=== PATIENT | female | born 1950 | race Caucasian/White ===

== ENCOUNTER 2017-09-23 15:00 | Outpatient (RCR) | payer MEDICARE, OTHER, SELFPAY ==
--- NOTE | 2017-08-25 12:31 | HP.PTEVAL_ITS ---
Patient's Visit Information SINA STAPLETON is a 67 year old F referred to Physical Therapy by Leonor Da Silva DO with a diagnosis of LBP, R hip pain, R hip bursitis. Date of Evaluation: 08/20/17 Physical Therapist: Corey Gilbert - Visit Plan Frequency: 2x /Week Duration: 4 Weeks Plan: Start with manual distraction of hip (straight leg, inferior glides with flexion, PA glides with ext and lateral gapping with hip IR). Add in light hip stretching, progressing to strengthening of hip and core as tolerated. May use DN, US and or IFC to reduce symptoms. - Subjective Subjective: Pt. is here today for her initital evaluation with diagnosis of LBP , R hip pain and R hip bursitis. She is a plesant 67 y.o. female who reports having increased anterior hip pinching: at her anterior hip on her R side with increased hip flexion and IR. Increases symptoms: yoga poses, sitting in low chairs, hip ext motions. Decreases symptoms: avoiding thoses positionings. Xray - suggesting anterior impingment of her hip. Pt. denies radiating pain down her LEs and no N/T. No changes in B/B. Pt. reports most pain is at anterior/medial hip. Pt. reports no LLE pain. Pt. is very active with yoga, but reports minimal strengthening exercises or routine. Pt. is hopeful to increase R hip ROM, decrease symptoms and increase tolerance to all yoga and gym exercises. - Pain R anterior hip Pain Intensity (Out of 10): 0 Pain Intensity Range: 0, 6 Comment: It pinches when I am trying to bend it more. - Objective POSTURE: Pt. has slight FH positioing, slight reduction in lumbar lordosis, slight rounded shoulders. PALPATION: Pt. has mild increase in palpation of psoas major, rectus femoris. Pt. has mild pain at lateral hip, no pain noted througout lumbar erector spinea. No pain at R piriformis muscle belly. NEUROLOGICAL: Pt. has normal sensation to light and sharp touch throughout bilateral LEs. Pt. 2+ patellar and achilles DTR bilaterally. Pt. is able to rise on heels and toes without LOB or visible weakness. ROM: LUMBAR- flexion min loss with mild increase in R anterior hip, ext min/nil loss increase in R anterior hip, SB nil loss NE bilat, rotation nil/min loss NE bilat. R hip- flexion 108deg mild increase in symptoms atnerior/medial hip, abd 45deg NE, IR at 90deg inrease NW 18deg of motion. ER 78deg NE. L hip- with in normal limits NE throughout. MMT: RLE- ankle/knee 5/5 throughout; hip- flexion 4/5 mild increase NW, abd 4/5 NE, ext 4+/5. LLE- ankle/knee 5/5 throughout; hip- flexion 4+/5, abd 4+/5, ext 4+/5. Core strength- poor+. GAIT: Pt. has normal gait pattern, except slight reduced R hip ext with increased pain noted. STAIRS : Pt. reports increased pinching with hip flexion to get to next step. - Special Tests L/S Slump test left side: Negative L/S Slump test right side: Negative L/S Left Straight Leg Raise: Negative L/S Right Straight Leg Raise: Negative R Hip Scour: Negative R Hip TONI - Intraarticular Pathology: Positive R Hip FADDIR - Labrum: Positive R Hip Impingement Provocation - Labrum: Positive - Goals Goal 1:: Pt. to be I with HEP. Goal Time Frame: 4-6 Weeks Goal 2:: Pt. to have increased R hip AROM to 120deg of flexion and 30deg of IR without increase in symptoms. Goal Time Frame: 4-6 Weeks Goal 3:: Pt. to ambulate with normal step length without increase in symptoms. Goal Time Frame: 4-6 Weeks Goal 4:: Pt. to have increased R hip musculature by 1/2 grade of all effected musculature reducing stress applied to R hip with all functional mobility. Goal Time Frame: 4-6 Weeks Goal 5:: Pt. to resume all yoga activities without increase in symptoms. Goal Time Frame: 4-6 Weeks - Rehabilitation Potential Physical Therapy Diagnosis: Pt. has signs and symptoms consistent with R anterior/medial hip pain. She has limited hip IR and hip flexion, but had negative scour testing. Her greatest pain is with FADDIR and TONI positioning. She most likely has an anterior hip impingment effecting her ROM and limiting her functional mobility. She would benefit from PT to increase ROM, increase R hip strength and reduce her pain. Rehabilitation Potential: Good - Anticipated Interventions Patient/Client Instruction: Educate patient on: Condition, Plan of Care, Risk Factors, Benefits of Fitness Program For the Purpose of:: To improve health and function, To foster healthy habits, To improve decision making, To facilitate caregiver knowledge, To improve self management, To prevent re-injury, To improve ability to perform tasks related to life management, To improve tolerance to ADL's Therapeutic Exercise to Include: Strength training, Power training, Endurance training, Postural training, Flexibilty training, Passive ROM, Active ROM, Dynamic Lumbar Stabilization For the Purpose of:: To decrease pain, To increase ROM, To improve nutrient delivery to tissue, To increase oxygenation perfusion, To improve muscle performance and motor function, To increase tolerance to activity/condition/ position, To improve ability of physical actions for home/community/work/leisure , To improve gait and locomotor functions, To improve health of tissue, To decrease soft tissue restriction, To increase flexibility/ROM Manual Therapy Techniques to Include: Mobilization, Passive ROM, Functional dry needling, Soft tissue mobilization For the Purpose of:: To decrease pain, To decrease swelling/inflammation, To increase ROM, To improve nutrient delivery to tissue IF ES: Yes Ultrasound (thermal/non thermal): Yes For the Purpose of:: To decrease pain, To increase ROM Thank you for the opportunity to evaluate your patient. For Medicare and Medicare HMO plans, please review the plan of care and approve it. It will need to be FAXED BACK to us at [phone] for Medicare purposes. Please let me know if there are questions or concerns regarding this plan of care. Physician Signature: Date:
--- NOTE | 2017-09-23 18:28 | HP.PTREVAL_ITS ---
Leonor Da Silva, , It has been my pleasure to treat SINA STAPLETON over the last 7 visits for LBP, R hip pain, R hip bursitis. Please see the progress note below for an update on the physical therapy plan of care! Subjective: Pt. reports I was pretty sore after taking a 35 minute walk the other day. Pt. reports having some gains with PT and massage. Pt. reports continued pain with increased hip flexon and while hip is in extended positioning during walking. Pt. also has pain with yoga activities. Pt. reports being 30% better overall. Objective/Function: Pt. has improved R hip ROM into ext- 10deg of ext, but has pinching feeling with hip flexon and with TONI and FADDIR motions. Pt. has increased pain with yoga and prolonged walking. Pt. is progressing but slowly. Pt. continues to present with imingment of her R hip, bt may have possible labral tear. Pt. to follow up with physician at this point in time. Plan Plan: Pt. to follow up with physician at this point in time. Pt. to come back to PT if warranted by physician. Goals Goal 1:: Pt. to be I with HEP. Goal Time Frame: 4-6 Weeks Goal Progress: Goal Met Goal 2:: Pt. to have increased R hip AROM to 120deg of flexion and 30deg of IR without increase in symptoms. Goal Time Frame: 4-6 Weeks Goal Progress: Progressing Goal 3:: Pt. to ambulate with normal step length without increase in symptoms. Goal Time Frame: 4-6 Weeks Goal Progress: Progressing Goal 4:: Pt. to have increased R hip musculature by 1/2 grade of all effected musculature reducing stress applied to R hip with all functional mobility. Goal Time Frame: 4-6 Weeks Goal Progress: Progressing Goal 5:: Pt. to resume all yoga activities without increase in symptoms. Goal Time Frame: 4-6 Weeks Goal Progress: Progressing Anticipated Interventions Patient/Client Instruction: Educate patient on: Condition, Plan of Care, Risk Factors, Benefits of Fitness Program For the Purpose of:: To improve health and function, To foster healthy habits, To improve decision making, To facilitate caregiver knowledge, To improve self management, To prevent re-injury, To improve ability to perform tasks related to life management, To improve tolerance to ADL's Therapeutic Exercise to Include: Strength training, Power training, Endurance training, Postural training, Flexibilty training, Passive ROM, Active ROM, Dynamic Lumbar Stabilization For the Purpose of:: To decrease pain, To increase ROM, To improve nutrient delivery to tissue, To increase oxygenation perfusion, To improve muscle performance and motor function, To increase tolerance to activity/condition/ position, To improve ability of physical actions for home/community/work/leisure , To improve gait and locomotor functions, To improve health of tissue, To decrease soft tissue restriction, To increase flexibility/ROM Manual Therapy Techniques to Include: Mobilization, Passive ROM, Functional dry needling, Soft tissue mobilization For the Purpose of:: To decrease pain, To decrease swelling/inflammation, To increase ROM, To improve nutrient delivery to tissue IF ES: Yes Ultrasound (thermal/non thermal): Yes For the Purpose of:: To decrease pain, To increase ROM Please do not hesitate to contact me at [phone] by phone or Fax: if you have questions or concerns regarding this new plan of care! Sincerely, Corey Gilbert
--- NOTE | 2018-02-08 12:23 | HP.PTDCNRP_ITS ---
HP - Discharge Summary (1) - Patient Information SINA STAPLETON was seen in my office for initial evaluation on 08/20/17. The following Plan of Care was established for this patient: Initial Frequency: 2x /Week Initial Duration: 4 Weeks - Anticipated Interventions Patient/Client Instruction: Educate patient on: Condition, Plan of Care, Risk Factors, Benefits of Fitness Program For the Purpose of:: To improve health and function, To foster healthy habits, To improve decision making, To facilitate caregiver knowledge, To improve self management, To prevent re-injury, To improve ability to perform tasks related to life management, To improve tolerance to ADL's Therapeutic Exercise to Include: Strength training, Power training, Endurance training, Postural training, Flexibilty training, Passive ROM, Active ROM, Dynamic Lumbar Stabilization For the Purpose of:: To decrease pain, To increase ROM, To improve nutrient delivery to tissue, To increase oxygenation perfusion, To improve muscle performance and motor function, To increase tolerance to activity/condition/ position, To improve ability of physical actions for home/community/work/leisure , To improve gait and locomotor functions, To improve health of tissue, To decrease soft tissue restriction, To increase flexibility/ROM Manual Therapy Techniques to Include: Mobilization, Passive ROM, Functional dry needling, Soft tissue mobilization For the Purpose of:: To decrease pain, To decrease swelling/inflammation, To increase ROM, To improve nutrient delivery to tissue IF ES: Yes Ultrasound (thermal/non thermal): Yes For the Purpose of:: To decrease pain, To increase ROM This patient was last seen in our office 09/23/17. Pertinent comments regarding their Physical therapy will appear below: Pt. was seen for her R hip pain. Pt. was to follow up with phsyician then back to PT if needed. Pt. has not been seen in 4 months and will be DC from PT at this point in time. At this point I will be discontinuing this patient from physical therapy. I would be happy to see this patient again in the future if found appropriate by the physician. Thank you! Corey Gilbert
== END 2017-09-23 19:00 | disposition home or self-care (01) ==
LOC: PT 15:00
PROVIDERS: Family Provider Internal Medicine; PCP Internal Medicine; Visit Provider Internal Medicine
DX: M25.559 Pain in unspecified hip (principal); M70.70 Other bursitis of hip, unspecified hip; M54.5 Low back pain
CPT/HCPCS: 97035; 97110; 97140; 97162; G8978; G8979

== ENCOUNTER → 2017-11-25 15:01 | Outpatient (CLI) | payer MEDICARE, OTHER, SELFPAY ==
--- NOTE | 2017-11-25 15:04 | HPBI_ITS ---
MAMMOGRAPHY - BILATERAL SCREENING REASON FOR EXAM: Female, 67 years old. Routine annual screening examination. PERTINENT HISTORY: Sister with breast cancer. Remote right excisional breast biopsy and bilateral stereotactic biopsies. TECHNIQUE: Digital bilateral breast naa (3D mammographic acquisition) in the CC and MLO projections. 2-D mediolateral oblique (MLO) and craniocaudad (CC) views of both breasts were obtained. CAD: Full Field Digital Mammography with Computer Added Detection was performed. COMPARISON: Comparison is made with prior study dated February 04, 2011 and June 18, 2012. FINDINGS: Breast Composition: There are scattered areas of fibroglandular density. There are no dominant masses or suspicious calcifications. Tissue clip markers are seen in the retroareolar areolar regions of both breasts. There is a 6.7 mm x 7.4 mm well-defined nodular density in the inferior slightly medial aspect of the right breast. This is new as compared to prior study. Correlation with ultrasound is recommended. No other significant abnormalities are identified. HPBI/SCREENING MAMM (CAD), BILAT IMPRESSION: 6.7 mm x 7.4 mm well-defined nodular density in the slightly inferior medial portion of the right breast as described. Correlation with ultrasound is recommended. ASSESSMENT CATEGORY: BIRADS Category 0: Incomplete. Need additional imaging evaluation. A letter regarding these results will be sent to the patient by the facility within 30 days. Approximately 10% of breast cancers are not detected by mammography. A normal mammogram should not delay biopsy of a clinically suspicious abnormality. [id number] Electronically Signed: Zander Marcelo MD at 8:14 EST Tel [phone], Service support ,
== END ==
PROVIDERS: Family Provider Internal Medicine; PCP Internal Medicine; Visit Provider Internal Medicine
DX: Z12.31 Encounter for screening mammogram for malignant neoplasm of breast (principal)
CPT/HCPCS: 77063; 77067

== ENCOUNTER → 2017-11-27 09:01 | Outpatient (CLI) | payer MEDICARE, OTHER, SELFPAY ==
--- NOTE | 2017-11-27 09:03 | US_ITS ---
STUDY: ULTRASOUND BREAST - RIGHT REASON FOR EXAM: Female, 67 years old. Abnormal screening mammogram. TECHNIQUE: Axial and longitudinal images of the RIGHT breast were performed with a high resolution ultrasound transducer. COMPARISON: Comparison is made with prior mammogram dated November 25, 2017. FINDINGS: RIGHT Breast: The mammographic abnormality corresponds to a 5 mm x 5 mm x 3 mm cyst at the 6:00 position breast at 2 cm from the nipple. Routine mammographic follow-up is recommended. US/Breast Limited Unilateral IMPRESSION: 5 mm x 5 mm x 3 mm cyst is seen at the 6:00 position breast at 2 cm from the nipple. ASSESSMENT CATEGORY: BIRADS Category 2: Benign. A letter regarding these results will be sent to the patient by the facility within 30 days. Electronically Signed: Zander Marcelo MD at 9:03 EST Tel [phone], Service support ,
== END ==
PROVIDERS: Family Provider Internal Medicine; PCP Internal Medicine; Visit Provider Internal Medicine
DX: N63.10 Unspecified lump in the right breast, unspecified quadrant (principal)
CPT/HCPCS: 76642

== ENCOUNTER → 2018-02-26 10:59 | Outpatient (CLI) | payer MEDICARE, OTHER, SELFPAY ==
--- NOTE | 2018-02-26 11:00 | US_ITS ---
STUDY: THYROID ULTRASOUND REASON FOR EXAM: Female, 67 years old. History of thyroid nodules. TECHNIQUE: Ultrasound evaluation of the thyroid was performed with real-time and static zuniga-scale imaging. COMPARISON: Comparison is made with prior study dated February 10, 2017. FINDINGS: RIGHT LOBE: The right lobe of the thyroid gland is enlarged and measures 5.3 cm x 1.8 cm x 1.0 cm. There is a homogeneous echotexture. Once again, 4 subcentimeter solid nodules are seen in the right lobe. The largest measures 5 mm x 6 mm x 6 mm. These are unchanged. LEFT LOBE: The left lobe of the thyroid gland measures 4.5 cm x 1.2 cm x 0.9 cm. There is a homogeneous echotexture. 3 hypoechoic solid nodules are seen. The largest measures 1 cm x 0.7 cm x 0.6 cm. This is essentially unchanged. ISTHMUS: The isthmus measures 2.0 mm. The regional lymph nodes are normal. US/Thyroid IMPRESSION: Nodule seen in both lobes of the thyroid. There has been essentially no change as compared to prior study. Electronically Signed: Zander Marcelo MD at 15:29 EDT Tel [phone], Service support ,
== END ==
PROVIDERS: Family Provider Internal Medicine; PCP Internal Medicine; Visit Provider Internal Medicine
DX: E04.1 Nontoxic single thyroid nodule (principal)
CPT/HCPCS: 76536

== ENCOUNTER → 2018-03-09 12:42 | Outpatient (CLI) | payer MEDICARE, OTHER, SELFPAY ==
--- NOTE | 2018-03-09 12:48 | RAD_ITS ---
STUDY: X-RAY - THORACIC SPINE REASON FOR EXAM: Female, 67 years old. Pain TECHNIQUE: 3 view(s) of the thoracic spine were obtained. COMPARISON: None. FINDINGS: Normal kyphosis of the thoracic spine. There is no substantial scoliosis. There is multilevel endplate spondylosis of the thoracic vertebrae. There is multilevel disc space narrowing of the thoracic spine. There is slight chronic loss of height at the level T7 and T8. The soft tissue structures are unremarkable. RAD/Thoracic Spine 3 Views IMPRESSION: Degenerative changes thoracic spine. No visualized evidence of an acute fracture. Electronically Signed: Dulce Larson MD at 17:07 EDT Tel , Service support ,
== END ==
PROVIDERS: Family Provider Internal Medicine; PCP Internal Medicine; Visit Provider Anesthesiology Pain Medicine
DX: M54.6 Pain in thoracic spine (principal)
CPT/HCPCS: 72072

== ENCOUNTER 2018-04-16 09:00 | Outpatient (RCR) | payer MEDICARE, OTHER, SELFPAY ==
--- NOTE | 2018-04-06 08:01 | HP.PTEVAL_ITS ---
Patient's Visit Information SINA STAPLETON is a 67 year old F referred to Physical Therapy by Saqib Medina MD with a diagnosis of R hip OA, thoracic spine pain. Date of Evaluation: 03/15/18 Physical Therapist: Corey Gilbert - Visit Plan Frequency: 2-3x /Week Duration: 4-6 Weeks Plan: Start with R hip/core strengthening in netural positioning with progression to functional strengthening. Education on postural strengthening and positioning. - Subjective Subjective: Pt. is here today for her initial evaluation with diagnosis of R hip OA and thoracic pain. Pt. has had increased pain in R lateral hip and down R thigh. Pt. reports minimal groin pain. No mechanism of injury. Pt. denies N/ T. Symptoms worsen: walking, getting in/out of car, yoga movements. Pt. has R hip injection 3 weeks ago with good + results. PT. is able to completed yoga with modified movements with good tolerance. Symptoms improve- ice, ibuprophen. Pt. is able sleep throughout the night without issues. Xray- shows moderate hip OA. Pt. does also have middle thoracic pain, that seems to increase in the middle of the day and increases throughout the rest of the evening. Pt. reports staying active reduces thoracic pain. Pt. does get get massage monthly with + results. Pt. is hopfeul to increase strength and reduce symptoms in order to get abck to all recreational activities without issues. - Pain lumbar spine Pain Intensity (Out of 10): 2 hip Pain Intensity (Out of 10): 1 Pain Intensity Range: 0, 3 - Objective POSTURE: pt. has slight increased thoracic kyphosis. Pt. has normal hip positioning in stance. Normal/equal iliac crest heights. PALPATION: Pt. has increased soreness at iliopsoas, no lumbar spine pain with papation this date. T5/T6 hypomobility noted. Pain at middle trap. NEUROLOGICAL: all intact, 2+ DTR patellar, achilles bilaterally. Pt. is able to rise on heels and toes without issues or LOB. ROM: R hip- flexion 108deg increase NW, IR 8deg increase NW, ext 10deg increase NW. Normal HS length bilat. MMT: RLE- ankle 5/ 5 throughout; knee- 5/5 througout; hip- flexion 4/5, abd 4/5, ext 4/5. Core- fair-. GAIT: decreased bilateral step length, slight lateral hip sway bilaterally. STAIRS: 1 HR with reciprocal pattern no pain noted. - Goals Goal 1:: Pt. to be I with HEP. Goal Time Frame: 4-6 Weeks Goal 2:: Pt. to have increased RLE strength increased by 1/2 grade throughout effected musculature. Goal Time Frame: 4-6 Weeks Goal 3:: Pt. to ambulate unlimited distances with 0/10 pain in R hip and thoracic spine. Goal Time Frame: 4-6 Weeks Goal 4:: Pt. to have decreased thoracic spine pain to 1-2/10 with all daily activities. Goal Time Frame: 4-6 Weeks Goal 5:: Pt. to negotiate 1 flight of steps with reciprocal pattern with 0/10 pain. - Rehabilitation Potential Physical Therapy Diagnosis: Pt. has signs and symptoms consistent with R hip OA and thoracic spine pain. Pt. has decreased mobility throughout R hip and thoracic spine. Pt. would benefit from PT to increase R LE strength, core strength, improve posture and increase postural strength in order to get back to all recreational actiities with decreased symptoms. Rehabilitation Potential: Excellent - Anticipated Interventions Patient/Client Instruction: Educate patient on: Condition, Plan of Care, Risk Factors, Benefits of Fitness Program For the Purpose of:: To improve health and function, To foster healthy habits, To improve decision making, To facilitate caregiver knowledge, To improve self management, To prevent re-injury, To improve ability to perform tasks related to life management, To improve tolerance to ADL's Therapeutic Exercise to Include: Strength training, Power training, Endurance training, Balance training For the Purpose of:: To decrease pain, To increase ROM, To improve nutrient delivery to tissue, To increase oxygenation perfusion, To improve muscle performance and motor function, To improve ability to perform ADL's, To improve gait and locomotor functions, To improve health of tissue, To decrease soft tissue restriction, To increase flexibility/ROM, To improve endurance Manual Therapy Techniques to Include: Petrissage, Trigger point massage, Mobilization, Passive ROM, Functional dry needling For the Purpose of:: To decrease pain, To increase ROM, To improve nutrient delivery to tissue, To improve muscle performance and motor function, To improve gait and locomotor functions, To improve health of tissue, To increase flexibility/ROM IF ES: Yes Cryotherapy (ice pack, ice massage): Yes Ultrasound (thermal/non thermal): Yes For the Purpose of:: To decrease pain, To decrease swelling/inflammation, To increase ROM Thank you for the opportunity to evaluate your patient. For Medicare and Medicare HMO plans, please review the plan of care and approve it. It will need to be FAXED BACK to us at [phone] for Medicare purposes. Please let me know if there are questions or concerns regarding this plan of care. Physician Signature: Date:
--- NOTE | 2018-07-20 12:02 | HP.PTDCNRP_ITS ---
HP - Discharge Summary (1) - Patient Information SINA STAPLETON was seen in my office for initial evaluation on 03/15/18. The following Plan of Care was established for this patient: Initial Frequency: 2-3x /Week Initial Duration: 4-6 Weeks - Anticipated Interventions Patient/Client Instruction: Educate patient on: Condition, Plan of Care, Risk Factors, Benefits of Fitness Program For the Purpose of:: To improve health and function, To foster healthy habits, To improve decision making, To facilitate caregiver knowledge, To improve self management, To prevent re-injury, To improve ability to perform tasks related to life management, To improve tolerance to ADL's Therapeutic Exercise to Include: Strength training, Power training, Endurance training, Balance training For the Purpose of:: To decrease pain, To increase ROM, To improve nutrient delivery to tissue, To increase oxygenation perfusion, To improve muscle performance and motor function, To improve ability to perform ADL's, To improve gait and locomotor functions, To improve health of tissue, To decrease soft tissue restriction, To increase flexibility/ROM, To improve endurance Manual Therapy Techniques to Include: Petrissage, Trigger point massage, Mobilization, Passive ROM, Functional dry needling For the Purpose of:: To decrease pain, To increase ROM, To improve nutrient delivery to tissue, To improve muscle performance and motor function, To improve gait and locomotor functions, To improve health of tissue, To increase flexibi lity/ROM IF ES: Yes Cryotherapy (ice pack, ice massage): Yes Ultrasound (thermal/non thermal): Yes For the Purpose of:: To decrease pain, To decrease swelling/inflammation, To increase ROM This patient was last seen in our office 04/16/18. Pertinent comments regarding their Physical therapy will appear below: Pt. was seen for her R hip pain. Pt. was seen for 4 visits and was not imporving. She followed up with an ortho and decided to have a R TKA. Pt. will be DC from PT at this point in time. At this point I will be discontinuing this patient from physical therapy. I would be happy to see this patient again in the future if found appropriate by the physician. Thank you! Corey Gilbert
== END 2018-04-16 19:00 | disposition home or self-care (01) ==
LOC: PT 09:00
PROVIDERS: Family Provider Internal Medicine; PCP Internal Medicine; Visit Provider Anesthesiology Pain Medicine
DX: M70.70 Other bursitis of hip, unspecified hip (principal); M54.5 Low back pain
CPT/HCPCS: 97110; 97140; 97162; 97163; G8978; G8979

== ENCOUNTER → 2018-05-03 14:08 | Outpatient (CLI) | payer MEDICARE, OTHER, SELFPAY ==
--- NOTE | 2018-05-03 14:12 | RAD_ITS ---
STUDY: X-RAY CHEST REASON FOR EXAM: Female, 67 years old. Preoperative hip surgery TECHNIQUE: PA and lateral views of the chest. COMPARISON: 07/17/2014 FINDINGS: The lungs are clear and expanded. There is no demonstrated pleural abnormality. Normal size heart. Normal mediastinum and rose mary. Normal visualized pulmonary arteries. Normal visualized aortic arch and descending thoracic aorta. Normal visualized thoracic spine. Normal visualized ribs, clavicles, and shoulders. There is no demonstrated abnormality of the visualized soft tissue structures of the upper abdomen. RAD/Chest PA and Lateral IMPRESSION: Normal x-ray examination of the chest. Electronically Signed: Felton Singh DO at 15:04 EDT Tel , Service support ,
== END ==
PROVIDERS: Family Provider Internal Medicine; PCP Internal Medicine; Visit Provider Internal Medicine
DX: Z01.818 Encounter for other preprocedural examination (principal)
CPT/HCPCS: 71046

== ENCOUNTER → 2018-06-24 15:27 | Outpatient (CLI) | payer MEDICARE, OTHER, SELFPAY ==
--- NOTE | 2018-06-24 15:30 | US_ITS ---
STUDY: ULTRASOUND BREAST - RIGHT REASON FOR EXAM: Female, 67 years old. Follow-up examination for a right breast cyst. TECHNIQUE: Axial and longitudinal images of the RIGHT breast were performed with a high resolution ultrasound transducer. COMPARISON: Comparison is made with prior ultrasound of the right breast dated November 27, 2017. FINDINGS: RIGHT Breast: There is a 4 mm x 7 mm x 4 mm cyst at the 6:00 position of the breast at 2 cm from nipple. This is essentially unchanged. US/Breast Limited Unilateral IMPRESSION: Stable cyst at the 6:00 position of the breast to sinus from the nipple. ASSESSMENT CATEGORY: BIRADS Category 2: Benign. A letter regarding these results will be sent to the patient by the facility within 30 days. Electronically Signed: Zander Marcelo MD at 8:39 EDT Tel [phone], Service support ,
== END ==
PROVIDERS: Family Provider Internal Medicine; PCP Internal Medicine; Visit Provider Internal Medicine
DX: N60.01 Solitary cyst of right breast (principal)
CPT/HCPCS: 76642

== ENCOUNTER → 2018-07-01 10:32 | Outpatient (CLI) | payer MEDICARE, OTHER, SELFPAY ==
--- NOTE | 2018-07-01 10:35 | BD_ITS ---
STUDY: DUAL ENERGY X-RAY ABSORPTIOMETRY / DXA REASON FOR EXAM: Female, 67 years old. The patient is postmenopausal. Loss of height. TECHNIQUE: Bone Mineral Density (BMD) measurements of lumbar spine and left hip were obtained. The patient is status post right total hip replacement. COMPARISON: Comparison is made with prior examination dated May 13, 2016. FINDINGS: Lumbar Spine (L1-L4): g/cm2 (0.912) / T-score (-2.2) / Z-score (-0.6) Findings are suggestive of osteopenia with a moderate fracture risk. Left Femur Total: g/cm2 (0.746) / T-score (-2.1) / Z-score (-0.8) Left Femoral Neck: g/cm2 (0.728) / T-score (-2.2) / Z-score (-0.7) The T-Scores on the most recent prior examination were: Lumbar Spine (L1-L4): There has been worsening of bone density since the previous examination. Left Femur Total: which represents a worsening of 3.2%. BD/Dexa Bone Density Study IMPRESSION: The patient is considered osteopenic as outlined below according to World Gagan Organization (WHO) criteria with a moderate fracture risk. There has been worsening of bone density since the previous examination. Reference Information: The T-score is the number of standard deviations above or below the standard which is normal for young adults at their peak bone mineral density. The World Health Organization (WHO) interprets the T-scores as follows: Above -1 Normal bone density Between -1 and -2.5 Osteopenia Equal to / or below -2.5 Osteoporosis As a practical clinical guideline, osteopenia may be graded as follows: Mild -1 through -1.5 Moderate -1.6 through -2.0 Severe -2.1 through -2.4 The Z-score is the number of standard deviations above or below age-matched controls. A Z-score of less than -1.5 would be considered abnormal. References: 1. NIH Osteoporosis and Related Bone Diseases http://www.osteo.org 2. International Society for Clinical Densitometry http://www.iscd.org 3. National Osteoporosis Foundation http://www.nof.org Electronically Signed: Zander Marcelo MD at 8:58 EDT Tel [phone], Service support ,
== END ==
PROVIDERS: Family Provider Internal Medicine; PCP Internal Medicine; Visit Provider Internal Medicine
DX: Z78.0 Asymptomatic menopausal state (principal)
CPT/HCPCS: 77080

== ENCOUNTER → 2018-11-15 14:30 | Outpatient (CLI) | payer SELFPAY ==
--- NOTE | 2018-11-15 14:40 | CT_ITS ---
STUDY: CT CHEST WITHOUT CONTRAST REASON FOR EXAM: Female, 68 years old. Elevated cholesterol. Hypertension. Calcium scoring examination. Radiological overreading. RADIATION DOSAGE (If Supplied By Facility): CTDIvol = ( 12.19 ) mGy, DLP = ( 195.04 ) mGycm TECHNIQUE: Transaxial imaging was performed without the administration of intravenous contrast material. Individualized dose optimization techniques were used for this CT. COMPARISON: None. FINDINGS: Mild degree of increased linear markings at the lung bases suggestive of bibasilar linear atelectasis and/or scarring. There is no demonstrated pleural abnormality. There are calcifications of the coronary arteries. There are multiple small lymph nodes within the mediastinum, which are normal in size and morphology most compatible with reactive lymph hyperplasia. Normal hilar regions. Normal unenhanced pulmonary arteries. There is atherosclerotic calcification of the aortic arch . Normal osseous structures. There is no demonstrated abnormality of the visualized upper abdomen. CT/Limited Chest CT w/CCTA IMPRESSION: Coronary artery calcification. No acute abnormality is seen. Electronically Signed: Zander Marcelo MD at 15:21 EST , Service support ,
--- NOTE | 2018-11-16 15:32 | CA.SCORE ---
Calcium Scoring Date of Study:: 11/15/18 Coronary Calcium Scoring: Calcium score: Left main: 0 Left anterior descendin Left circumflex: 0 Right coronary artery: 215 Total Agatston score: 215 Conclusion: Conclusion: The total calcium score (215) is between the 75th and 90th percentile for women between the ages of 65 and 69. (Exact percentile calculated to be 79%; this means 70% of the population has lower calcium score and 21% of the population has a higher calcium score than this patient.) Results: RCA: Patient appears to have calcium in the proximal mid and distal RCA. Impression: Impression: A calcium score of 215 demonstrates probable moderate plaque burden. This suggests that moderate nonobstructive coronary artery disease is highly likely. A full evaluation of cardiac risk factors should include an assessment of all conventional risk factors, and the scores and percentile ranking reported herein should be evaluated in this context. Recommend clinical correlation or alternative mode of testing such as stress echocardiogram to better evaluate patient's possible ischemic burden.
== END ==
PROVIDERS: Family Provider Internal Medicine; PCP Internal Medicine; Referring Provider Internal Medicine; Visit Provider Internal Medicine
DX: E78.5 Hyperlipidemia, unspecified (principal)
CPT/HCPCS: 75571; 76380

== ENCOUNTER → 2019-04-27 | Outpatient (CLI) | payer MEDICARE, OTHER, SELFPAY ==
--- NOTE | 2019-04-27 14:21 | BI_ITS ---
MAMMOGRAPHY - BILATERAL SCREENING REASON FOR EXAM: Female, 68 years old. Routine annual screening examination. PERTINENT HISTORY: Sister with breast cancer. Aunt with breast cancer. Remote right excisional breast biopsy and bilateral stereotactic breast biopsies. TECHNIQUE: Digital bilateral breast denita (3D mammographic acquisition) in the CC and MLO projections. 2-D mediolateral oblique (MLO) and craniocaudad (CC) views of both breasts were obtained. CAD: Full Field Digital Mammography with Computer Added Detection was performed. COMPARISON: Comparison is made with prior study dated November 25, 2017 and June 18, 2012. FINDINGS: Breast Composition: There are scattered areas of fibroglandular density. There are no dominant masses or suspicious calcifications. Stable 7.4 mm x 6.7 mm well-defined nodule in the inferior slightly medial portion of the right breast. A tissue clip marker is seen in the retroareolar region of the breasts bilaterally. No other significant abnormalities are identified. There has been no significant change since the prior study. BI/SCREEN MAMM (CAD) W/DENITA BILAT IMPRESSION: Stable bilateral screening mammogram. Yearly follow-up mammogram recommended. (A) ASSESSMENT CATEGORY: BIRADS Category 2: Benign. A letter regarding these results will be sent to the patient by the facility within 30 days. Approximately 10% of breast cancers are not detected by mammography. A normal mammogram should not delay biopsy of a clinically suspicious abnormality. [id number] Electronically Signed: Zander Marcelo, at 15:23 EDT , Service support ,
== END | disposition home or self-care (01) ==
LOC: OPBI 14:20
PROVIDERS: Family Provider Internal Medicine; PCP Internal Medicine; Referring Provider Internal Medicine; Visit Provider Internal Medicine
DX: Z12.31 Encounter for screening mammogram for malignant neoplasm of breast (principal)
CPT/HCPCS: 77063; 77067

== ENCOUNTER → 2019-07-26 | Outpatient (CLI) | payer MEDICARE, OTHER, SELFPAY ==
--- NOTE | 2019-07-26 15:25 | CT_ITS ---
STUDY: CT BRAIN WITH AND WITHOUT CONTRAST REASON FOR EXAM: Female, 68 years old. Frequent headaches. History of hypertension. RADIATION DOSAGE (If Supplied By Facility): CTDIvol = ( 44.99 ) mGy, DLP = ( 1479.73 ) mGycm TECHNIQUE: Transaxial CT imaging of the brain was performed pre and post contrast administration. The examination was performed with intravenous administration of IV Isovue 370 50mL. Individualized dose optimization techniques were used for this CT. COMPARISON: None. FINDINGS: Normal soft tissue structures. Normal calvarium. Normal size ventricles and extra-axial spaces for the patient's age. There is minimal cortical loss with encephalomalacia in the medial left frontal lobe adjacent to the falx cerebri suggesting remote infarct. Normal white matter tracts of the cerebral hemispheres. Remote lacunar infarct in the left basal ganglia. Normal right basal ganglia and bilateral thalami. Normal brainstem. Normal cerebellum. There is no intracranial hemorrhage. There are no findings of an acute ischemic infarction. There is normal enhancement within the brain. The opacified vessels appear normal in size and distribution and without abnormality. Normal visualized paranasal sinuses. CT/Brain/Head W/WO Contrast IMPRESSION: 1. Left frontal encephalomalacia suggesting remote infarct. 2. Remote lacunar infarct in left basal ganglia. 3. No other evidence of intracranial or calvarial abnormality. Electronically Signed: Eliezer Noel DO at 20:55 EDT Tel [phone], Service support ,
[2019-07-26 15:56] LABS: CREATININE FINGERSTICK < 0.6 mg/dL (0.55-1.02); EGFR FINGERSTICK > 60.0000 mL/min (>60)
== END | disposition home or self-care (01) ==
LOC: CT 15:23
PROVIDERS: Family Provider Internal Medicine; PCP Internal Medicine; Referring Provider Internal Medicine; Visit Provider Internal Medicine
DX: R51 Headache (principal)
CPT/HCPCS: 70470; Q9967

== ENCOUNTER → 2019-08-03 | Outpatient (CLI) | payer MEDICARE, OTHER, SELFPAY ==
--- NOTE | 2019-08-03 12:44 | MRI_ITS ---
STUDY: MRI BRAIN WITH AND WITHOUT CONTRAST REASON FOR EXAM: Female, 68 years old. confusion. TECHNIQUE: Standardized multiplanar fat and water weighted pulse sequences were obtained. IV Dotarem 12 was administered for the contrast portion of the examination. COMPARISON: CT dated July 26, 2018 FINDINGS: Normal size of the ventricles and extra-axial spaces for the patient's age. Normal white matter tracts of the supratentorial brain. There is left anterior frontal and temporal encephalomalacia and gliosis, consistent with prior insult. Normal bilateral basal ganglia. Normal thalami. There is no extra-axial fluid accumulation. Normal flow voids within the major intracranial circulation suggesting patency by spin echo criteria. Normal venous enhancement. There is no enhancing intra-axial or extra-axial abnormality. Normal sella turcica, pituitary gland, infundibular stalk, optic chiasm and hypothalamus. Normal tectal plate and pineal gland. Normal midbrain, den and medulla. Normal cerebellum. Normal basal cisterns. MRI/Brain W/WO Contrast IMPRESSION: No acute intracranial abnormality or masses. Prior left anterior frontal and temporal insult. Electronically Signed: Joi Menjivar MD at 12:03 EDT Tel , Service support ,
== END | disposition home or self-care (01) ==
LOC: MRI 12:32
PROVIDERS: Family Provider Internal Medicine; PCP Internal Medicine; Referring Provider Internal Medicine; Visit Provider Internal Medicine
DX: R41.0 Disorientation, unspecified (principal)
CPT/HCPCS: 70553

== ENCOUNTER → 2019-09-01 12:57 | Outpatient (CLI) | payer MEDICARE, OTHER, SELFPAY ==
--- NOTE | 2019-09-01 12:59 | ECHOCS_ITS ---
Reason For Study: TIA Procedure This was a 2D Doppler, Color Flow transthoracic echocardiogram. Contrast injection was performed. Exam performed in department. Left Ventricle Normal LV size. The estimated ejection fraction is 60 %. Normal diastology for age. No regional wall motion abnormalities noted. Right Ventricle Normal RV size. Normal systolic function. Atria Normal left atrium. Normal right atrium. No doppler evidence for ASD. Bubble contrast study negative for right to left interatrial shunt. Mitral Valve There is no mitral valve stenosis. Trivial mitral valve insufficiency. Tricuspid Valve There is no tricuspid stenosis. Trivial tricuspid valve insufficiency. Pulmonary artery systolic pressure is 25-30 mmHg. Aortic Valve Trisinus/trileaflet aortic valve. There is no aortic stenosis. No aortic valve insufficiency. Pulmonic Valve There is no pulmonic valvular stenosis. No pulmonic valve insufficiency. Great Vessels Normal aortic root. Pericardium/Pleural No pericardial effusion. Medication 22 gauge I.V. with prn adaptor inserted into left arm. Diluted definity 2ml given slow IV push to enhance endocardial definition. Performed a rapid injection of agitated mix of 9 cc saline and 1cc air to assess for atrial septal defect. MMode/2D Measurements & Calculations LVIDd: 3.5 cm IVSd: 1.2 cm Ao root diam: 3.2 cm LVIDs: 2.1 cm LVPWd: 0.91 cm LA dimension: 3.1 cm RVDd: 3.1 cm FS: 39.3 % LAV(MOD-bp): 34.4 ml LA A4 area: 15.1 cm2 RA A4 area: 10.1 cm2 LAV(MOD-sp2): 28.9 ml LAV(MOD-sp4): 36.8 ml Time Measurements MV dec time: 0.20 sec Doppler Measurements & Calculations MV E max chris: 77.1 cm/sec Lat Peak E' Chris: 9.9 cm/sec Med Peak E' Chris: 7.8 cm/sec MV A max chris: 90.1 cm/sec E/E' lat: 7.8 E/E' med: 9.9 MV E/A: 0.86 MV V2 max: 102.1 cm/sec MV P1/2t max chris: 91.8 cm/sec Ao V2 max: 116.5 cm/sec MV max P.2 mmHg MV P1/2t: 55.3 msec Ao max P.4 mmHg MV V2 mean: 52.1 cm/sec MV mean P.3 mmHg MV dec slope: 486.2 cm/sec2 MV V2 VTI: 24.6 cm MVA(P1/2t): 4.0 cm2 LV V1 max: 92.3 cm/sec PA V2 max: 56.9 cm/sec TR max chris: 239.3 cm/sec LV V1 max P.4 mmHg TR max P.9 mmHg Interpretation Summary The estimated ejection fraction is 60 %. Normal diastology for age. Trivial mitral valve insufficiency. Trivial tricuspid valve insufficiency. Pulmonary artery systolic pressure is 25-30 mmHg. Diluted definity 2ml given slow IV push to enhance endocardial definition. Performed a rapid injection of agitated mix of 9 cc saline and 1cc air to assess for atrial septal defect. Bubble contrast study negative for right to left interatrial shunt. The study was technically difficult. Ordering Physician: Leonor Da Silva Referring Physician: Leonor Da Silva Performed By: Mack Marquez RCS
== END ==
PROVIDERS: Family Provider Internal Medicine; PCP Internal Medicine; Referring Provider Internal Medicine; Visit Provider Internal Medicine
DX: Z86.73 Personal history of transient ischemic attack (TIA), and cerebral infarction without residual deficits (principal)
CPT/HCPCS: 93306; Q9957; A4216; C8929

== ENCOUNTER → 2019-11-23 | Outpatient (CLI) | payer MEDICARE, OTHER, SELFPAY ==
--- NOTE | 2019-11-23 15:00 | US_ITS ---
STUDY: THYROID ULTRASOUND REASON FOR EXAM: Female, 69 years old. NODULES TECHNIQUE: Ultrasound evaluation of the thyroid was performed with real-time and static zuniga-scale imaging. COMPARISON: February 26, 2018. FINDINGS: RIGHT LOBE: The right lobe of the thyroid gland measures 4.7 x 4.3 x 1.2 cm. There is a heterogeneous echotexture. There is a mid thyroid possibly solid hypoechoic 4 mm mid thyroid nodule. A previously described adjacent 5 mm nodule is faintly noted. LEFT LOBE: The left lobe of the thyroid gland measures 3.9 x 1.1 x 1.1 cm. There is a heterogeneous echotexture. There is a lower pole hypoechoic 7 x 6 mm solid nodule, possibly minimally smaller. Hypoechoic 3 mm mid thyroid is probable cystic nodule appears stable. ISTHMUS: The isthmus measures 2 mm . The regional lymph nodes are normal. US/Thyroid IMPRESSION: Slight heterogeneity of the thyroid. Bilateral thyroid nodules as noted. Electronically Signed: Nomi Sage DO at 23:52 EST Tel [phone], Service support ,
== END | disposition home or self-care (01) ==
LOC: US 14:58
PROVIDERS: PCP Internal Medicine; Referring Provider Internal Medicine; Visit Provider Internal Medicine
DX: E04.1 Nontoxic single thyroid nodule (principal)
CPT/HCPCS: 76536

== ENCOUNTER → 2020-01-19 08:42 | Outpatient (CLI) | payer MEDICARE, OTHER, SELFPAY ==
[2019-12-27 13:22] VITALS: BMI 23.0
--- NOTE | 2020-01-19 08:46 | US_ITS ---
STUDY: ULTRASOUND BREAST - RIGHT REASON FOR EXAM: Female, 69 years old. Palpable lump in the right breast. TECHNIQUE: Axial and longitudinal images of the RIGHT breast were performed with a high resolution ultrasound transducer. # OF IMAGES: 40 COMPARISON: Comparison is made with prior mammogram done earlier in the day. FINDINGS: RIGHT Breast: The superior aspect of the right breast was examined by ultrasound. No sonographic abnormalities. IMPRESSION: No sonographic abnormality is seen. ASSESSMENT CATEGORY: BIRADS Category 1: Negative. A letter regarding these results will be sent to the patient by the facility within 30 days. Electronically Signed: Zander Marcelo, at 11:06 EDT , Service support , STUDY: ULTRASOUND BREAST - LEFT REASON FOR EXAM: Female, 69 years old. Palpable lump left breast. TECHNIQUE: Axial and longitudinal images of the LEFT breast were performed with a high resolution ultrasound transducer. # OF IMAGES: 40 COMPARISON: Comparison is made with prior mammogram done earlier today. FINDINGS: LEFT Breast: There is a 3 mm x 3 mm x 2 mm cyst at the 2:00 position of the breast at 5 cm from the nipple. US/Breast Limited Unilateral IMPRESSION: 3 mm x 3 mm x 2 mm cyst at the 2:00 position of the breast at 5 cm from nipple. ASSESSMENT CATEGORY: BIRADS Category 2: Benign. A letter regarding these results will be sent to the patient by the facility within 30 days. Electronically Signed: Zander Marcelo, at 11:07 EDT , Service support ,
--- NOTE | 2020-01-19 08:46 | BI_ITS ---
MAMMOGRAPHY - BILATERAL DIAGNOSTIC REASON FOR EXAM: Female, 69 years old. Bilateral breast lumps. PERTINENT HISTORY: Sister with breast cancer. Aunt with breast cancer. History of prior right excisional breast biopsy and stereotactic breast biopsy. TECHNIQUE: Digital bilateral breast naa (3D mammographic acquisition) in the CC and MLO projections. 2-D mediolateral oblique (MLO) and craniocaudad (CC) views of both breasts were obtained. CAD: Full Field Digital Mammography with Computer Added Detection was performed. COMPARISON: Comparison is made with prior study dated April 27, 2019 and November 25, 2017. FINDINGS: Breast Composition: There are scattered areas of fibroglandular density. There are no dominant masses or suspicious calcifications. Stable 7.4 mm x 6.5 mm well-defined nodule in the inferior slightly medial portion of the right breast. A tissue clip marker is once again seen in the retroareolar region of the breasts bilaterally. No other significant abnormalities are identified. There has been no significant change since the prior study. BI/DIAG MAMM W/CAD, BILAT IMPRESSION: Stable bilateral diagnostic mammogram. With the patient''s history of bilateral breast lumps, targeted breast ultrasound is recommended. ASSESSMENT CATEGORY: BIRADS Category 0: Incomplete. Need additional imaging evaluation. A letter regarding these results will be sent to the patient by the facility within 30 days. Approximately 10% of breast cancers are not detected by mammography. A normal mammogram should not delay biopsy of a clinically suspicious abnormality. Electronically Signed: Zander Marcelo, at 10:13 EDT , Service support ,
== END ==
PROVIDERS: PCP Internal Medicine; Referring Provider Internal Medicine; Visit Provider Internal Medicine
DX: N63.21 Unspecified lump in the left breast, upper outer quadrant (principal); N63.10 Unspecified lump in the right breast, unspecified quadrant
CPT/HCPCS: 76642; 77062; 77066; G0279

== ENCOUNTER → 2020-03-27 | Outpatient (CLI) | payer MEDICARE, OTHER, SELFPAY ==
[2019-12-27 13:22] VITALS: BMI 23.0
--- NOTE | 2020-03-27 12:50 | CT_ITS ---
STUDY: CT MAXILLOFACIAL SINUSES REASON FOR EXAM: Female, 69 years old. SINUSITIS, HEADACHE X MONTHS, PREV SURGERY TO ROOF OF MOUTH TO MOVE TEETH BACK RADIATION DOSAGE (If Supplied By Facility): CTDIvol = ( 29.38 ) mGy, DLP = ( 415.23 ) mGycm TECHNIQUE: The patient was scanned in a multi detector CT scanner. High resolution axial imaging was performed without the administration of intravenous contrast material. Sagittal and coronal images were reconstructed. Individualized dose optimization techniques were used for this CT. COMPARISON: None. FINDINGS: FRONTAL SINUSES: Normal aeration, without mucosal inflammatory disease. ETHMOIDAL SINUSES: Normal aeration, without mucosal inflammatory disease. MAXILLARY SINUSES: Normal aeration, without mucosal inflammatory disease. SPHENOIDAL SINUSES: Normal aeration, without mucosal inflammatory disease. There is patency of the bilateral maxillary infundibuli with normal uncinate processes, ethmoid bullae, and hiatus semilunaris. Normal bilateral middle turbinates. Normal bilateral inferior turbinates. Normal midline nasal septum. There is patency of the bilateral nasal airways. The visualized osseous structures are normal. The visualized bilateral orbital contents are normal. CT/Sinus/Facial Bone IMPRESSION: Normal CT examination of the maxillofacial sinuses. Electronically Signed: Zander Marcelo, at 14:32 EDT , Service support ,
== END | disposition home or self-care (01) ==
LOC: CT 12:49
PROVIDERS: PCP Internal Medicine; Referring Provider Internal Medicine; Visit Provider Internal Medicine
DX: J32.9 Chronic sinusitis, unspecified (principal)
CPT/HCPCS: 70486

== ENCOUNTER 2020-04-11 05:34 | Day surgery (SDC) | payer MEDICARE, OTHER, SELFPAY ==
[2019-12-27 13:22] VITALS: BMI 23.0
[2020-04-11] VITALS (8 sets, daily range): BP systolic 107–146; BP diastolic 57–77; PULSE 59–74; RESP 16–18; TEMP 35.9–36.4; O2SAT 97–100; BMI 22.5
[2020-04-11] MEDS: Lactated Ringers 1,000 ML 100 ML IV (06:10)
--- NOTE | 2020-04-11 06:10 | PCM.HP.STD ---
Problem List (1) Personal history of colonic polyps Status: Chronic History of Present Illness Date of Admission: 04/11/20 The patient is a 69 year old F presents today for surveillance colonoscopy. She has a personal history of colon polyps. Her most recent colonoscopy was January 19, 2014. She had a tubular adenoma at that time. She was scheduled yesterday however the bowel prep was insufficient. She has undergone additional bowel prepping and states that she feels that she is now clear. She has no other current health issues. She denies chest pain or fever or chills no abdominal pain no change in bowel habits. Past Medical History Past Medical History (Chronic Problems): Chronic Problems (Last Reviewed 12/27/19 @ 13:20 by Sheila Stevens) Personal history of colonic polyps (Chronic) Medical History: Medical History (Last Reviewed 12/27/19 @ 13:20 by Sheila Stevens) Arthritis M19.90 Depression with anxiety F41.8 Hemorrhoids K64.9 History of back problems Sleep apnea G47.30 Thyroid disease E07.9 Hypertension I10 Allergies No Known Allergies Allergy (Unverified 04/11/20 05:49) Home Medications: Ambulatory Orders Medication Instructions Recorded biotin 10,000 mcg capsule 10,000 mcg PO DAILY cap 12/27/19 cholecalciferol (vitamin D3) 50 2,000 unit PO DAILY 12/27/19 mcg (2,000 unit) capsule coenzyme Q10 100 mg capsule 100 mg PO DAILY 12/27/19 levothyroxine 75 mcg capsule 75 mcg PO DAILY 12/27/19 losartan 25 mg tablet 25 mg PO BID 12/27/19 multivitamin 1 cap PO DAILY 12/27/19 pregabalin 75 mg capsule 75 mg PO DAILY 12/27/19 rosuvastatin 5 mg tablet 5 mg PO DAILY 12/27/19 trazodone 100 mg tablet 100 mg PO QHS PRN 12/27/19 valacyclovir 500 mg tablet 500 mg PO BID 12/27/19 venlafaxine 25 mg tablet 225 mg PO DAILY tab 12/27/19 Surgical History: Surgical History (Last Updated 12/27/19 @ 13:20 by Sheila Stevens) History of excision of pilonidal cyst Z98.890 History of left breast biopsy Z98.890 Smoking Status: Never smoker Tobacco Use: Non-smoker Review of Systems Constitutional: Denies: Anorexia, Chills, Fever Cardiovascular: Denies: Chest Pain Respiratory: Denies: Cough, Shortness of breath at rest Gastrointestinal: Denies: Abdominal Pain, Hematochezia, Melena Endocrine: Denies: Change in Body Habitus VTE Information - Inpt Only VTE Present on Admission: No - Physical Exam Vitals/I&O's: Vital Signs Temp Pulse Resp BP Pulse Ox 97.1 F L 74 16 116/75 100 04/11/20 05:49 04/11/20 05:49 04/11/20 05:49 04/11/20 05:49 04/11/20 05:49 Oxygen Delivery Method Room Air Weight: 129 lb 3.054 oz Body Mass Index (BMI) 22.5 General: Alert, Oriented x3, Cooperative, No apparent distress HEENT: Atraumatic Oral: Moist Mucosa Lungs: Clear to auscultation, Normal air movement Cardiovascular: Regular rate, Regular Rhythm Abdomen: Bowel Sounds Present, Soft, Non Tender Extremities: No Calf Tenderness Neurological: - - Cognition intact Current Medications Lactated Ringer's () 1,000 mls @ 100 mls/hr IV .Q10H TUSHAR Assessment/Plan I am recommending to the patient a surveillance colonoscopy with possible biopsy or polypectomy is indicated. She is aware of the technique, benefit, risks, alternatives. She has had an opportunity to ask and have questions answered. She presents via open access. We will proceed as noted. Nghia White M.D., F.A.C.S. Procedure Criteria Procedure Type: Elective COVID Risk Discussion: The surgeon/proceduralist and patient have discussed in detail the risk of exposure to and/or potential harm posed by the COVID-19 virus with having a surgery/procedure at this time versus the risk of delaying the surgery/procedure. It is not possible to know either the risk of delaying the surgery or procedure or chance of getting an infection with perfect accuracy, but a joint decision was made between the patient and the surgeon/proceduralist to proceed at this time with the scheduled surgery/procedure as indicated on the consent form.
--- NOTE | 2020-04-11 07:03 | OP.COLON_ITS ---
Patient Name: Kallie Massey Procedure Date: 04/11/2020 5:47 AM Date of : 1950 Age: 69 Procedure: Colonoscopy Indications: High risk colon cancer surveillance: Personal history of colonic polyps Providers: Nghia White MD Referring MD: Leonor Da Silva Medicines: See the Anesthesia note for documentation of the administered medications Patient Profile: Last Colonoscopy: January 2014. Complications: No immediate complications. Procedure: Pre-Anesthesia Assessment: - Prior to the procedure, a History and Physical was performed, and patient medications and allergies were reviewed. The patient's tolerance of previous anesthesia was also reviewed. The risks and benefits of the procedure and the sedation options and risks were discussed with the patient. All questions were answered, and informed consent was obtained. Prior Anticoagulants: The patient has taken no previous anticoagulant or antiplatelet agents. ASA Grade Assessment: II - A patient with mild systemic disease. After reviewing the risks and benefits, the patient was deemed in satisfactory condition to undergo the procedure. After I obtained informed consent, the scope was passed under direct vision. Throughout the procedure, the patient's blood pressure, pulse, and oxygen saturations were monitored continuously. The Colonoscope was introduced through the anus and advanced to the cecum, identified by appendiceal orifice and ileocecal valve. The colonoscopy was unusually difficult due to a tortuous colon. Successful completion of the procedure was aided by changing the patient to a supine position. The ileocecal valve and the appendiceal orifice were photographed. Scope In: 6:31:36 AM Scope Withdrawal Time 0 hours 8 minutes 0 seconds Scope Out: 6:55:58 AM Total Procedure Duration Time 0 hours 24 minutes 22 seconds Findings: Hemorrhoids were found on perianal exam. Scattered diverticula were found in the sigmoid colon. The colon (entire examined portion) was significantly tortuous. Advancing the scope required changing the patient to a supine position and using manual pressure. The exam was otherwise without abnormality. Impression: - Hemorrhoids found on perianal exam. - Diverticulosis in the sigmoid colon. - Tortuous colon. - The examination was otherwise normal. - No specimens collected. Recommendation: - Discharge patient to home. - Resume previous diet. - Continue present medications. - Repeat colonoscopy in 5 years for surveillance. Procedure Code(s): --- Professional --- 82828, Colonoscopy, flexible; diagnostic, including collection of specimen(s) by brushing or washing, when performed (separate procedure) Diagnosis Code(s): --- Professional --- Z86.010, Personal history of colonic polyps K64.9, Unspecified hemorrhoids K57.30, Diverticulosis of large intestine without perforation or abscess without bleeding Q43.8, Other specified congenital malformations of intestine CPT copyright 2017 [employer]. All rights reserved. The codes documented in this report are preliminary and upon medical records coder review may be revised to meet current compliance requirements. Nghia White MD 04/11/2020 7:03:23 AM This report has been signed electronically. Number of Addenda: 0 Note Initiated On: 04/11/2020 5:47 AM
--- NOTE | 2020-04-11 07:04 | OP.CCLET_ITS ---
04/11/2020 Leonor Da Silva Re : Colonoscopy procedure for Kallie Massey Dear Avinash This procedure was performed on Saturday, April 11, 2020. My impressions and recommendations are as follows: Impressions : - Hemorrhoids found on perianal exam. - Diverticulosis in the sigmoid colon. - Tortuous colon. - The examination was otherwise normal. - No specimens collected. Recommendations : - Discharge patient to home. - Resume previous diet. - Continue present medications. - Repeat colonoscopy in 5 years for surveillance. My findings are described in the full procedure note, which is enclosed. If I can be of further assistance, please feel free to contact me at Doctor phone number(s): Work: . Sincerely, Nghia White MD 04/11/2020 7:03:23 AM This report has been signed electronically.
== END 2020-04-11 08:08 | disposition home or self-care (01) ==
LOC: EN 05:34 → AC 05:35
PROVIDERS: Anesthesiology; PCP Internal Medicine; Referring Provider Internal Medicine; Visit Provider Surgery
PROC: 0DJD8ZZ Inspection of Lower Intestinal Tract, Via Natural or Artificial Opening Endoscopic (ICD-10-PCS; CPT 45378; principal; 2020-04-11 06:25)
DX: K57.30 Diverticulosis of large intestine without perforation or abscess without bleeding (principal); K64.9 Unspecified hemorrhoids; Z86.010 Personal history of colon polyps; I10 Essential (primary) hypertension; E07.9 Disorder of thyroid, unspecified; M19.90 Unspecified osteoarthritis, unspecified site; F41.8 Other specified anxiety disorders; Z11.59 Encounter for screening for other viral diseases; Z79.899 Other long term (current) drug therapy
CPT/HCPCS: 45378; 87635; G2023; J7120; J2405; U0003

== ENCOUNTER → 2020-06-05 | Outpatient (CLI) | payer MEDICARE, OTHER, SELFPAY ==
[2020-04-11 05:49] VITALS: BMI 22.5
--- NOTE | 2020-06-05 14:35 | RAD_ITS ---
STUDY: X-RAY - LUMBAR SPINE REASON FOR EXAM: Female, 69 years old. RIGHT LBP TECHNIQUE: 4 view(s) of the lumbar spine were obtained. COMPARISON: None FINDINGS: Normal lumbar lordosis. Mild levoscoliosis is present resulting in mild asymmetric disc space narrowing at multiple levels. Flexion and extension views does not show spinal instability or abnormal listhesis. Mild retrolisthesis of L1 on L2 of no more than 2 mm is present. A large amount of stool is seen throughout the colon. No visualized compression deformity or fracture. Right hip prosthesis is partially visualized. There is atherosclerotic calcification of the abdominal aorta without a demonstrated aneurysm. RAD/L/S Spine Min 4 Views IMPRESSION: Degenerative changes of the spine, as detailed above. Electronically Signed: Andrea Carlin MD at 23:11 EDT , Service support ,
--- NOTE | 2020-06-05 14:37 | RAD_ITS ---
STUDY: X-RAY - SACROILIAC JOINTS REASON FOR EXAM: Female, 69 years old. RIGHT POSTERIOR PAIN TECHNIQUE: 3 view(s) of the sacroiliac joints were obtained. COMPARISON: None. FINDINGS: There are degenerative changes of the bilateral sacroiliac joints. Normal visualized sacral ala and sacrum. Normal visualized iliac bones. Normal visualized soft tissue structures. 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 Electronically Signed: Toyin Stuart, at 5:12 EDT Tel , Service support ,
== END | disposition home or self-care (01) ==
LOC: HPRAD 14:29
PROVIDERS: PCP Internal Medicine; Referring Provider Internal Medicine; Visit Provider Internal Medicine
DX: M54.5 Low back pain (principal)
CPT/HCPCS: 72110; 72202

== ENCOUNTER 2020-06-15 10:58 | Outpatient (RCR) | payer MEDICARE, OTHER, SELFPAY ==
[2020-04-11 05:49] VITALS: BMI 22.5
--- NOTE | 2020-06-19 14:59 | HP.PTEVAL_ITS ---
Patient's Visit Information SINA STAPLETON is a 69 year old F referred to Physical Therapy by Dr. Leonor Da Silva DO with a diagnosis of Low back pain and R arm pain. Date of Evaluation: 06/15/20 Physical Therapist: Corey Gilbert DPT - Visit Plan Frequency: 2x /Week Duration: 4-6 Weeks Plan: Start with light extension progression as tolerated. Once decreasing progress core stbaility exrcises to reduce risk of future return. - Subjective Pt. is here today for her initial evaluation with diagnosis of Low back pain and arm pain. Pt. is no longer having much arm pain, but desires to focus on her low back pain. Pt reports having pain in R low back. Feels it most when picking weeds, which she reports bign this for multiple hours. States that leaning fwd causes inc pain. Uses heating pad on low back before sleep. Doctor placed her on prednisone and is 3 days in. Visited chiropractor yesterday and states she felt good post. Pt. denies NT in either LE. Pt. does have some difficulty with moving in bed. Pt. reports using online resources for some exercises, but was mostly some light stretching. Pt. is hopeful to reduce symptoms in order to get back to all recreational walking, chores and yoga without issues. - Pain R low back Pain Intensity (Out of 10): 5 - Objective POSTURE: Pt. has decent posture in stance. Pt. has normal iliac crest heights bilaterally. Normal wt.s hifting, no lateral shift noted. PALPATION: Tenderness noted in R lumbar parapsinals. Pain reproduced with pain of L2-L4. ROM: Pain produced w/ back flex. Decrease in pain noted w/ back ext. Pt. had mild increase NW pain at L2-L4 spinous processes with spring testing hypomobility noted as well. MMT: pt. has good strength throughout. pt. reports no increase in pain with testing, except with SLR wtih RLE 5/5 strength but increased pain. NEURO: Pt. has normal sensation throughout BLEs. Pt. has normal DTR of BLEs. Pt. shows no signs fo myotmal weakness. GAIT: Decreased R arm swing with gait, slight flexed posture. Pt. ambulates with overall decreased tempo and increased muscle gaurding. - Special Tests L/S Slump test left side: Negative L/S Slump test right side: Positive L/S Left Straight Leg Raise: Positive L/S Right Straight Leg Raise: Negative Lumbar Standing: Flexion - Mechanical Response: No effect Lumbar Standing: Flexion - Symptoms During Testing: Increases Lumbar Standing: Flexion - Symptoms After Testing: No worse Lumbar Standing: Extension - Mechanical Response: No effect Lumbar Standing: Extension - Symptoms During Testing: Decreases Lumbar Standing: Extension - Symptoms After Testing: Better - Goals Goal 1:: LTG: Pt. to be I with HEP. Goal Time Frame: 4-6 Weeks Goal 2:: STG: pt. to walk community level distances with 0-2/10 pain in lumbar spine. Goal Time Frame: 2-4 Weeks Goal 3:: LTG: Pt. to have full lumbar ROM without increase in symptoms. Goal Time Frame: 4-6 Weeks Goal 4:: STG: pt. to sleep throughout the night with 0-2/10 pain. Goal Time Frame: 2-4 Weeks Goal 5:: LTG: Pt. to have increased core strength by 1/2 grade of all effected musculature. Goal Time Frame: 4-6 Weeks Goal 6:: LTG: Pt. educated in body mechanics to reduce risk of future injury. - Rehabilitation Potential Physical Therapy Diagnosis: Pt. has signs and symptoms consistent with low back pain with out radiculopathy. Pt. has increased pain with flexion based moveme nts, especially with sustained movements. Pt. has decraesed symptoms with extension based movements. Pt. would benefit from PT to work on above limiations progressing back to yoga and all recreational activities without increase in symptoms. Rehabilitation Potential: Good - Anticipated Interventions Patient/Client Instruction: Educate patient on: Condition, Plan of Care, Risk Factors, Benefits of Fitness Program For the Purpose of:: To facilitate caregiver knowledge, To improve self management, To prevent re-injury, To improve ability to perform tasks related to life management, To improve tolerance to ADL's Therapeutic Exercise to Include: Strength training, Power training, Endurance training, Postural training, Flexibilty training, Passive ROM, Active ROM, Dynamic Lumbar Stabilization, Vijaya Exercises For the Purpose of:: To decrease pain, To decrease swelling/inflammation, To increase ROM, To improve nutrient delivery to tissue, To increase oxygenation perfusion, To improve muscle performance and motor function, To increase tolerance to activity/condition/position, To improve performance and independence with ADL's, To decrease level of supervision to perform tasks, To improve ability of physical actions for home/community/work/leisure Manual Therapy Techniques to Include: Mobilization, Passive ROM, Functional dry needling, Soft tissue mobilization For the Purpose of:: To decrease pain, To decrease swelling/inflammation, To increase ROM, To improve nutrient delivery to tissue, To improve muscle performance and motor function Ultrasound (thermal/non thermal): No For the Purpose of:: To decrease pain, To decrease swelling/inflammation Thank you for the opportunity to evaluate your patient. For Medicare and Medicare HMO plans, please review the plan of care and approve it. It will need to be FAXED BACK to us at [phone] for Medicare purposes. For Medicare only, by signing this I certify the plan of care. Please let me know if there are questions or concerns regarding this plan of care. Physician Signature: Date:
== END 2020-06-15 19:00 | disposition home or self-care (01) ==
LOC: PT 10:58
PROVIDERS: PCP Internal Medicine; Referring Provider Internal Medicine; Visit Provider Internal Medicine
DX: M54.5 Low back pain (principal); M79.603 Pain in arm, unspecified
CPT/HCPCS: 97110; 97161

== ENCOUNTER → 2020-07-10 | Outpatient (CLI) | payer MEDICARE, OTHER, SELFPAY ==
[2020-04-11 05:49] VITALS: BMI 22.5
--- NOTE | 2020-07-10 08:55 | US_ITS ---
STUDY: ABDOMINAL ULTRASOUND - RIGHT UPPER QUADRANT REASON FOR VISIT: Female, 69 years old elevated LFT''s TECHNIQUE: Ultrasound evaluation of the right upper quadrant was performed with real-time and static zuniga-scale imaging. TECHNICAL QUALITY: Adequate. COMPARISON: Comparison is made with prior study dated 03/08/2010. FINDINGS: Liver: The liver measures 14.7 cm. There is normal echogenicity of the liver. The bile ducts are within normal limits. There is hepatic color flow. The direction of portal flow is hepatopetal. There is no demonstrated mass lesion. Gallbladder: Normal distended gallbladder. The gallbladder wall measures 1.8 mm. There is a negative sonographic Rodarte''s sign. There is no pericholecystic fluid. There is a solitary echogenic gallstone within the gallbladder. It measures 1.4 cm x 1.1 cm x 0.8 cm. Common Bile Duct (C.B.D.): The common bile duct measures 7.1 mm. Pancreas: Normal size of the head, body and tail of the pancreas. There is normal echogenicity of the pancreas. There is no demonstrated pancreatic mass or cyst. Right Kidney: Normal size of the right kidney. The right kidney measures 10.9 cm x 4.4 cm x 5.0 cm. Normal renal cortex. The right cortex measures 1.5 cm. There is no demonstrated renal mass or cyst. There is no right hydronephrosis. US/Liver IMPRESSION: Solitary gallstone. Electronically Signed: Zander Marcelo, at 14:51 EDT , Service support ,
== END | disposition home or self-care (01) ==
LOC: US 08:54
PROVIDERS: PCP Internal Medicine; Referring Provider Internal Medicine; Visit Provider Internal Medicine
DX: R94.5 Abnormal results of liver function studies (principal)
CPT/HCPCS: 76705

== ENCOUNTER → 2020-08-02 | Outpatient (CLI) | payer MEDICARE, OTHER, SELFPAY ==
[2020-07-16 06:06] VITALS: BMI 22.7
--- NOTE | 2020-08-02 14:19 | EKG12_ITS ---
Test Reason : PRE OP Blood Pressure : / mmHG Vent. Rate : 079 BPM Atrial Rate : 079 BPM P-R Int : 126 ms QRS Dur : 086 ms QT Int : 346 ms P-R-T Axes : 064 -60 063 degrees QTc Int : 396 ms Normal sinus rhythm Low voltage QRS Left anterior fascicular block Abnormal ECG No previous ECGs available Confirmed by GAGE MARROQUIN, LUÍS ([id number]), subeditor SURI BYNUM ([id number]) on 08/06/2020 8:18:46 AM Referred By: NEW Confirmed By:LUÍS ALMONTE MD
[2020-08-02 14:43] LABS: Hemoglobin 14.4 g/dL (12.0-15.0); Mean Corp Hgb Conc 32.7 g/dL (32-36); Mean Platelet Vol. 9.8 fl (6.2-12.0); Platelet Count 274 K/mm3 (150-450); RBC Distribution Width CV 12.3 % (11.6-14.6); RBC Distribution Width SD 47.2 fl (35.1-43.9); Red Blood Count 4.23 M/mm3 (4.2-5.4); White Blood Count 8.2 K/mm3 (4.4-11.0)
[2020-08-02 15:26] LABS: Anion Gap 4 (5-15); BUN 16 mg/dL (7-18); Calcium,Total 9.5 mg/dL (8.5-10.1); Chloride 106 mmol/L (98-107); Creatinine, Serum 0.73 mg/dL (0.55-1.02); EST Glomerular Filtration Rate 85 mL/min (>60); Est Glom Filt Rate - Afr Amer 102 mL/min (>60); Glucose 95 mg/dL (74-106); Potassium 4.3 mmol/L (3.5-5.1); Sodium Level 143 mmol/L (136-145)
== END | disposition home or self-care (01) ==
LOC: LAB 14:09
PROVIDERS: PCP Internal Medicine; Visit Provider Otolaryngology
DX: Z01.818 Encounter for other preprocedural examination (principal); Z11.59 Encounter for screening for other viral diseases
CPT/HCPCS: 36415; 80048; 85027; 87635; 93005; U0003

== ENCOUNTER → 2020-08-07 | Outpatient (CLI) | payer MEDICARE, OTHER, SELFPAY ==
[2020-07-16 06:06] VITALS: BMI 22.7
--- NOTE | 2020-08-07 09:00 | NASAL_PTH ---
PATIENT: SINA PIMENTEL LOC: [facility] U#:[id number] AGE/SX: 69/F ROOM: RE08/07/[address]: Dr. Jerrod Newton MD : 1950 BED: DIS: 08/07/2020 SPEC #: [id number] RECD: 08/07/20 14:58 STATUS: JOLANTA ANIYA #: [id number] YUMIKO: 08/07/20 09:[address]: Jerrod Newton DEPT: SURGICAL PATHOLOGY RECD BY: Eda Garrison ENTERED: 08/08/20 06:58 SP TYPE: NASAL SPEC OTHR DR: Dr. 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 Negative for malignancy. See comment. SJ:anmol 08/09/20 COMMENT Clinical correlation and appropriate follow up are necessary. MICROSCOPIC DESCRIPTION Slides are reviewed. GROSS DESCRIPTION Received is one container labeled with the patient's name and not further designated. The specimen consists of a fragment of land soft tissue measuring 0.2 x 0.1 x 0.1 cm. The specimen is totally submitted in one cassette. / MONTY:anmol 08/08/20 TC:5 CPT: 29539
== END | disposition home or self-care (01) ==
LOC: LABSPEC 15:12
PROVIDERS: PCP Internal Medicine; Referring Provider Otolaryngology; Visit Provider Otolaryngology
DX: D14.0 Benign neoplasm of middle ear, nasal cavity and accessory sinuses (principal)
CPT/HCPCS: 88305

== ENCOUNTER → 2020-08-27 13:37 | Outpatient (CLI) | payer MEDICARE, OTHER, SELFPAY ==
[2020-08-15 11:20] VITALS: BMI 24.7
--- NOTE | 2020-08-27 13:39 | STE_ITS ---
Reason For Study: Pre-Op; Abnormal EKG Stress Results Protocol: Ata Protocol Maximum Predicted HR: 151 bpm Target HR: 128 bpm % Maximum Predicted HR: 93 % DurationHeart Rate Stage (mm:ss) (bpm) BP Comment Baseline 70 114/82No Chest Pain Ata Protocol Stage I 3:00 97 120/72No Chest Pain Ata Protocol Stage II 3:00 118 130/70No Chest Pain Ata Protocol Stage III 3:00 141 152/70No Chest Pain; Mild Dypnea Recovery 86 118/68No Chest Pain Stress Duration: 9:00 mm:ss Maximum Stress HR: 141 bpm METS: 10 Baseline Echocardiogram Findings Stress Echo Wall motion Data Resting WM Intermediate WM Stress WM Interpretation Summary Exercise stress echo. 70-year-old lady with a history of family history of coronary artery disease. Stress protocol: Resting EKG demonstrates normal sinus rhythm with a rate of 71 bpm normal intervals are noted resting blood pressure is 114/82 mmHg. The patient exercised according to the regular Ata protocol for a total duration of 9 minutes. The maximum heart rate attained was 150 bpm which was 99% of max impacted heart rate the maximum workload was 10.1 metabolic equivalents. The patient maintained sinus rhythm throughout the recording. She completed stage III of the Ata protocol. There were no ST or T wave changes noted to suggest ischemia. The peak blood pressure was 150/72 mmHg with a rate- pressure product of 21,150. Stress echocardiographic images. Resting echocardiogram demonstrated overall preserved left ventricular systolic function estimated at 55%. No wall motion abnormalities were noted. The patient exercised according to the Ata protocol for 9 minutes and at peak exercise stress images were obtained. It demonstrated thickening in all ricks of the ventricle with reduction in low ventricular cavity size and peaking of ejection fraction of 65%. No new wall motion abnormalities were present. Conclusion: Exercise stress echocardiogram with no EKG or echocardiographic evidence of ischemia at a high workload. Good functional aerobic capacity. Ordering Physician: Tanner Barragan Referring Physician: Leonor Da Silva Performed By: Mack Marquez RCS
== END ==
PROVIDERS: PCP Internal Medicine; Referring Provider Internal Medicine Cardiovascular Disease; Visit Provider Internal Medicine Cardiovascular Disease
DX: Z01.810 Encounter for preprocedural cardiovascular examination (principal); R94.31 Abnormal electrocardiogram [ECG] [EKG]
CPT/HCPCS: 93017; 93350

== ENCOUNTER → 2021-01-22 13:54 | Outpatient (CLI) | payer MEDICARE, OTHER, SELFPAY ==
[2020-08-15 11:20] VITALS: BMI 24.7
--- NOTE | 2021-01-22 14:20 | US_ITS ---
STUDY: THYROID ULTRASOUND REASON FOR EXAM: Female, 70 years old. NODULE TECHNIQUE: Ultrasound evaluation of the thyroid was performed with real-time and static zuniga-scale imaging. COMPARISON: To 1220 FINDINGS: RIGHT LOBE: The right lobe of the thyroid gland measures 4.4 x 1.5 x 0.9 cm. There is a homogeneous echotexture. Nodule 1: Enlarging 6 x 6 x 6 mm solid isoechoic wider than tall ill-defined marginated nodule with no echogenic foci (TR 3) in the posterior right lobe and follow-up ultrasound is recommended in one year. LEFT LOBE: The left lobe of the thyroid gland measures 3.8 x 1.2 x 1.0 cm. There is a homogeneous echotexture. Nodule 2: No change in the 6 x 8 x 4 mm solid hypoechoic wider than tall ill-defined marginated nodule with no echogenic foci (TR 4) in the lateral left lobe consistent with an adenoma. ISTHMUS: The isthmus measures 2 mm thick. . The regional lymph nodes are normal. US/Thyroid IMPRESSION: Enlarging subcentimeter nodule in the right lobe and follow-up ultrasound is recommended in one year. Electronically Signed: Aleksandr Ricardo MD at 16:54 EDT Tel , Service support ,
--- NOTE | 2021-01-22 14:21 | BI_ITS ---
MAMMOGRAPHY - BILATERAL SCREENING REASON FOR EXAM: Female, 70 years old. Routine annual screening examination. PERTINENT HISTORY: Sister with breast cancer. Aunt with breast cancer. History of prior right excisional breast biopsy and bilateral stereotactic breast biopsies. TECHNIQUE: Digital bilateral breast denita (3D mammographic acquisition) in the CC and MLO projections. 2-D mediolateral oblique (MLO) and craniocaudad (CC) views of both breasts were obtained. CAD: Full Field Digital Mammography with Computer Added Detection was performed. COMPARISON: Comparison is made with prior study dated 01/19/2020 and 04/27/2019. FINDINGS: Breast Composition: There are scattered areas of fibroglandular density. There are no dominant masses or suspicious calcifications. A tissue clip marker is seen in the retroareolar region of the right breast. A tissue clip marker is also seen in the retroareolar areolar region of the left breast. Stable 6.5 mm x 7 mm well-defined nodule in the inferior retroareolar region of the right breast. No other significant abnormalities are identified. There has been no significant change since the prior study. BI/SCRN MAMM (CAD)W/DENITA BILAT IMPRESSION: Stable bilateral screening mammogram. Yearly follow-up mammogram recommended. (A) ASSESSMENT CATEGORY: BIRADS Category 2: Benign. A letter regarding these results will be sent to the patient by the facility within 30 days. Approximately 10% of breast cancers are not detected by mammography. A normal mammogram should not delay biopsy of a clinically suspicious abnormality. [id number] Electronically Signed: Zander Marcelo MD at 15:40 EDT , Service support ,
--- NOTE | 2021-01-22 14:41 | BD_ITS ---
STUDY: DUAL ENERGY X-RAY ABSORPTIOMETRY / DXA REASON FOR EXAM: Female, 70 years old. Z780. The patient is postmenopausal. Loss of height. TECHNIQUE: Bone Mineral Density (BMD) measurements of lumbar spine and left hip were obtained. COMPARISON: Comparison is made with prior study dated 07/01/2018. FINDINGS: Lumbar Spine (L1-L4): g/cm2 (0.891) / T-score (-2.4) / Z-score (-0.8) Findings are suggestive of osteopenia with a high fracture risk. Left Femur Total: g/cm2 (0.729) / T-score (-2.2) / Z-score (-0.8) Left Femoral Neck: g/cm2 (0.671) / T-score (-2.6) / Z-score (-1.0) The T-Scores on the most recent prior examination were: Lumbar Spine (L1-L4): There has been worsening of bone density since the previous examination. Left Femur Total: which represents a worsening of 2.3%. BD/Dexa Bone Density Study IMPRESSION: The patient is considered osteoporotic as outlined below according to World Gagan Organization (WHO) criteria with a high fracture risk. There has been worsening of bone density since the previous examination. Reference Information: The T-score is the number of standard deviations above or below the standard which is normal for young adults at their peak bone mineral density. The World Health Organization (WHO) interprets the T-scores as follows: Above -1 Normal bone density Between -1 and -2.5 Osteopenia Equal to / or below -2.5 Osteoporosis As a practical clinical guideline, osteopenia may be graded as follows: Mild -1 through -1.5 Moderate -1.6 through -2.0 Severe -2.1 through -2.4 The Z-score is the number of standard deviations above or below age-matched controls. A Z-score of less than -1.5 would be considered abnormal. References: 1. NIH Osteoporosis and Related Bone Diseases www osteo.org 2. International Society for Clinical Densitometry www iscd.org 3. National Osteoporosis Foundation www nof.org Electronically Signed: Zander Marcelo MD at 10:44 EDT , Service support ,
== END ==
PROVIDERS: PCP Internal Medicine; Referring Provider Internal Medicine; Visit Provider Internal Medicine
DX: E04.1 Nontoxic single thyroid nodule (principal); Z78.0 Asymptomatic menopausal state; Z12.31 Encounter for screening mammogram for malignant neoplasm of breast
CPT/HCPCS: 76536; 77063; 77067; 77080

== ENCOUNTER 2021-02-21 06:03 | Day surgery (SDC) | payer MEDICARE, OTHER, SELFPAY ==
[2021-01-28 13:40] VITALS: BMI 22.9
--- NOTE | 2021-02-14 15:43 | NURSING ---
Pt ended PAT phone interview phone abruptly and states I shouldn't have taken the call right now. Pt informed that there are instructions for preparing for surgery as well as a needed EKG appointment and lab work. Pt unable to stay on the phone to complete the EKG appointment time. Pt instructed to phone back and that a note will be left in PAT office to attempt to call her back on another day. Pt verbalizes understanding.
--- NOTE | 2021-02-18 12:03 | EKG12_ITS ---
Test Reason : PRE OP Blood Pressure : / mmHG Vent. Rate : 070 BPM Atrial Rate : 070 BPM P-R Int : 140 ms QRS Dur : 084 ms QT Int : 364 ms P-R-T Axes : 083 -70 073 degrees QTc Int : 393 ms Normal sinus rhythm Left axis deviation Abnormal ECG Confirmed by GAGE MARROQUIN, LUÍS ([id number]), slot editor JEAN CESPEDES ([id number]) on 02/19/2021 8:36:06 AM Referred By: Nghia White Confirmed By:LUÍS ALMONTE MD
[2021-02-18 13:00] LABS: Hematocrit 44.1 % (37-47); Hemoglobin 14.2 g/dL (12.0-15.0); Mean Corp Hgb Conc 32.2 g/dL (32-36); Mean Corpuscular Hgb 32.9 pg (27.0-32.0); Mean Corpuscular Volume 102.1 fL (81-99); Platelet Count 283 K/mm3 (150-450); RBC Distribution Width CV 11.9 % (11.6-14.6); RBC Distribution Width SD 44.9 fl (35.1-43.9); Red Blood Count 4.32 M/mm3 (4.2-5.4); White Blood Count 6.5 K/mm3 (4.4-11.0)
[2021-02-18 14:26] LABS: Anion Gap 3 (5-15); BUN 16 mg/dL (7-18); BUN/Creat Ratio 26.6 RATIO (10-20); Calcium,Total 9.3 mg/dL (8.5-10.1); Chloride 107 mmol/L (98-107); EST Glomerular Filtration Rate 105 mL/min (>60); Est Glom Filt Rate - Afr Amer 127 mL/min (>60); Glucose 83 mg/dL (74-106); Potassium 4.5 mmol/L (3.5-5.1); Sodium Level 141 mmol/L (136-145)
[2021-02-18 14:30] LABS: Thyroid Stim Hormone (TSH) 0.62 uIU/mL (0.358-3.74)
[2021-02-21] VITALS (11 sets, daily range): BP systolic 96–138; BP diastolic 53–72; PULSE 54–72; RESP 16–18; TEMP 36.1–36.8; O2SAT 94–100; BMI 23.8
--- NOTE | 2021-02-21 06:25 | PCM.HP.BLA ---
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 cap 12/27/19 [History Confirmed 01/28/21] cholecalciferol (vitamin D3) 50 mcg (2,000 unit) capsule 2,000 unit PO DAILY 12/27/19 [History Confirmed 01/28/21] coenzyme Q10 100 mg capsule 100 mg PO DAILY 12/27/19 [History Confirmed 01/28/21] levothyroxine 75 mcg capsule 75 mcg PO DAILY 12/27/19 [History Confirmed 01/28/21] losartan 25 mg tablet 50 mg PO DAILY 12/27/19 [History Confirmed 01/28/21] multivitamin 1 cap PO DAILY 12/27/19 [History Confirmed 01/28/21] pregabalin 75 mg capsule 75 mg PO DAILY 12/27/19 [History Confirmed 01/28/21] rosuvastatin 5 mg tablet 5 mg PO DAILY 12/27/19 [History Confirmed 01/28/21] trazodone 100 mg tablet 100 mg PO QHS PRN 12/27/19 [History Confirmed 01/28/21] valacyclovir 500 mg tablet 500 mg PO BID 12/27/19 [History Confirmed 01/28/21] venlafaxine 25 mg tablet 225 mg PO DAILY? tab 12/27/19 [History Confirmed 01/28/21] PFSH Medical History? Essential (primary) hypertension (Chronic) Hyperlipidemia (Chronic) Subcutaneous mass of abdominal wall (Acute) Taking a statin medication (Acute) Abnormal liver function tests (Acute) Cholelithiasis with chronic cholecystitis (Chronic) Arthritis (Chronic) Depression with anxiety (Chronic) Hemorrhoids (Chronic) History of back problems (Chronic) Hypothyroidism (Chronic) Personal history of colonic polyps (Chronic) Sleep apnea (Chronic) Gallstone (Resolved) Surgical History? History of colonoscopy (Resolved 12/2019) History of excision of pilonidal cyst (Resolved) History of left breast biopsy (Resolved) Family History? Father Heart diseaseSister Breast cancerAunt Breast cancerMother Cancer ?? ? multiple myeloma Social History? (Updated 01/29/21 @ 08:51 by Misa ELIZABETH PA-C) Smoking Status:? Never smoker alcohol intake:? current alcohol intake frequency: a few times a month substance use type:? does not use HPI HPI HPI: SINA STAPLETON, is a 70 F who presents to the office today for HPI HPI Surgical H&P: Yes HPI: SINA STAPLETON, is a 70 F who presents to the office today for an update history and physical. Patient denies recent hospitalization or illnesses since her last office visit in July. 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 She notes however in the meantime her PCP had stopped her statin for 1 month and repeated her liver enzymes which had returned to normal. Her PCP, Dr. Da Silva, no longer feels the patient needs a liver biopsy to help decide her abnormal liver enzymes. Patient states after a month trial of not taking her statin, her PCP placed her back on the same medication. She denies previous gallbladder attack or symptoms. She also has a subcutaneous mass on her right lateral abdomen that she has had for many years and is looking to have this removed. She was evaluated by cardiology for pre-op clearance secondary to an abnormal EKG. She had a stress ECHO completed in August last year which was unremarkable and she was given cardiac clearance to proceed with surgery. Patient denies anesthesia complications previously. She notes a history of sleep apnea. She does sleep with a CPAP machine. Patient's previous history per Dr. White: SINA STAPLETON, is a 69 F who presents to the office today for surgical consultation for mildly abnormal liver function tests and abnormal ultrasound with 1.4 x 1.1 x 0.8 cm gallstone identified.? In addition she is describing enlarging subcutaneous mass right lateral mid abdomen.? This is causing her increasing discomfort particularly with bending over. She is referred by her primary care physician Dr. Leonor Da Silva and a written copy my surgical consult recommendations will return to her.? As of June 22, 2020 albumin is 4.3 total bilirubin 0.3 phosphatase 82 AST 36 ALT slightly elevated at 43.? Her white blood cell count was 7.5 with a hemoglobin 15.2 hematocrit 46.3 MCV slightly elevated at 102 MCH slightly elevated at 33.3.? Cholesterol level was 176 with a triglyceride of 174. She states that she eats mostly vegetarian diet.? She has not had fever or chills or sweats.? No unexpected weight loss. I have assisted her on April 11, 2020 with a colonoscopy.? Hemorrhoids were identified as well as diverticulosis and a tortuous colon. [facility] Imaging Services [address] [place] [address] Liver MR#:? [id number] Name: SINA PIMENTEL [facility] #:[id number] :? 1950F [id number] ? From:? Zander Marcelo MD PCP:Dr. Leonor Da Silva DO? Status:REG CLI Study:Liver? Date of Exam:07/10/20 Exam#[id number]? Ordering Dr:? Leonor Da Silva DO STUDY:? ABDOMINAL ULTRASOUND - RIGHT UPPER QUADRANT REASON FOR VISIT: ? Female, 69 years old? elevated LFT''s TECHNIQUE: ? Ultrasound evaluation of the right upper quadrant was performed with real-time and static zuniga-scale imaging. TECHNICAL? QUALITY: ? Adequate. COMPARISON: ? Comparison is made with prior study dated 03/08/2010. FINDINGS: Liver:? The liver measures 14.7 cm.? There is normal echogenicity of the liver.? The bile ducts are within normal limits.? There is hepatic color flow.? The direction of portal flow is hepatopetal.? There is no demonstrated mass lesion. Gallbladder:? Normal distended gallbladder.? The gallbladder wall measures 1.8 mm.? There is a negative sonographic Rodarte''s sign.? There is no pericholecystic fluid.? There is a solitary echogenic gallstone within the gallbladder.? It measures 1.4 cm x 1.1 cm x 0.8 cm. Common Bile Duct (C.B.D.): ? The common bile duct measures 7.1 mm. Pancreas: ? Normal size of the head, body and tail of the pancreas.? There is normal echogenicity of the pancreas. ? There is no demonstrated pancreatic mass or cyst. Right Kidney:? Normal size of the right kidney.? The right kidney measures 10.9 cm x 4.4 cm x 5.0 cm.? Normal renal cortex.? The right cortex measures 1.5 cm.? There is no demonstrated renal mass or cyst.? There is no right hydronephrosis. US/Liver IMPRESSION: Solitary gallstone. ? Electronically Signed: Zander Marcelo, at 14:51 EDT , Service support? , ? ROS General General: Yes fatigue; no weight change, appetite, colon cancer, breast cancer or weakness HEENT HEENT: No difficulty swallowing, eye injury, eye surgery, swollen glands or hoarseness Endo Endocrine: Yes thyroid disease; no diabetes mellitus, thyroid cancer, Hair loss, heat intolerance or cold intolerance Skin Skin: No rash or changing moles Breast Breast: No left breast lump, right breast lump, nipple discharge, breast pain, abnormal mammogram, abnormal US or breast enlargement Musc Musculoskeletal: Yes back problems and arthritis; no rheumatoid arthritis, gout or joint pain Cardio Cardiovascular: Yes high blood pressure; no murmur, pacemaker, heart disease, atrial fibrillation, heart attack, heart stent, palpitations, shortness of breat with exertion or chest pain Psych Psychiatric: Yes depression and anxiety; no hearing voices Resp Respiratory: No shortness of breath, Yes sleep apnea, No cough, No COPD, No asthma, No emphysema, No wheezing Gastro Gastrointestinal: No abdominal pain, No nausea or vomiting, No diarrhea, No constipation, No blood in stool, No acid reflux, Yes hemorrhoids, No ulcers, Yes gallbladder problem, No black,tarry stools Brandon Hematologic: No blood thinners, No blood disorders, No bleeding, No anemia, No blood clots Neuro Neurologic: No weakness Exam Const General: cooperative, healthy appearing, comfortable, no acute distress [facility] Head: normal to inspection Eyes General: appearance normal, both eyes and all related structures Neck Neck mass: No Chest Breast Palpation: No nipple discharge Resp Effort & Inspection: normal respiratory effort Auscultation: clear to auscultation bilaterally Cardio Rate: regular rate Rhythm: regular rhythm Heart Sounds: no murmurs GI Inspection: normal to inspection Auscultation: normal bowel sounds Skin Other: Right lateral abdomen- approximately 10 x 5 cm subcutaneous mass. Mobile, soft. Consistent with probable lipoma Neuro General: no focal motor deficits Extrem General: normal to inspection Psych Appearance: grossly normal Affect: normal affect Assessment & Plan Problems 1. Subcutaneous mass of abdominal wall? R22.2 2. Calculus of gallbladder with chronic cholecystitis without obstruction? K80.[address] White will plan to perform a laparoscopic cholecystectomy with intraoperative cholangiogram and excision of right lateral abdominal subcutaneous mass. Patient has declined the liver biopsy as her and her PCP have found the source of her abnormal liver enzymes. Procedure details, risks and benefits have been explained in great detail. Patient has had the opportunity to ask and have questions answered. Patient verbally understands and agrees with the plan. Coding Level of Care Code No Charge Diagnoses Subcutaneous mass of abdominal wall? R22.2 Calculus of gallbladder with chronic cholecystitis without obstruction? K80.10 ??Cholelithiasis location: gallbladder ??Biliary obstruction: without biliary obstruction I have re-examined the patient. There are no clinical changes since date of exam.
--- NOTE | 2021-02-21 06:28 | EX.PCM.DISCH ---
Discharge Instructions Procedure General Surgery Diet Discharge Diet: Light diet - advance as tolerated (if you have questions about your diet instructions, please talk to you doctor.) Activity Discharge Activity: May Not Drive (for 3-5 days or while taking narcotic pain medicine.) May shower in (days): 1 Lifting Restrictions: 10 pounds Dressing / Incision Call your doctor if your incision/area has: Continuous Slow Oozing, Sudden Increased Bleeding, Increased Pain/ Swelling, Increased Redness and Foul Smelling Discharge Call your doctor if you observe: Fever of 101 or Higher Suture Line Care: Avoid Pulling/Pushing and Avoid Pinching/Bending Additional Dressing/Incision Instructions:: Change or remove dressing in 4 days. Leave steri-strips in place for 1 week. Follow Up Care Please Follow Up With: Nghia White MD When: Call [phone] to make an appointment to be seen in about 10 days. Test Results: Test results from this visit will be discussed in further detail at your follow-up appointment, if applicable. Discharge Plan Admission Attending Provider: Nghia White Primary Care Provider: Leonor Da Silva Discharge Orders/Prescriptions Prescriptions: No Action venlafaxine 25 mg tablet 225 mg PO DAILY RF: 0 pregabalin [Lyrica] 75 mg capsule 75 mg PO DAILY RF: 0 losartan 25 mg tablet 50 mg PO DAILY RF: 0 valacyclovir 500 mg tablet 500 mg PO DAILY RF: 0 levothyroxine 75 mcg capsule 75 mcg capsule 75 mcg PO QHS RF: 0 trazodone 100 mg tablet 100 mg PO QHS PRN (Reason: Sleep) RF: 0 rosuvastatin 5 mg tablet 5 mg PO QHS RF: 0 coenzyme Q10 100 mg capsule 100 mg PO DAILY RF: 0 cholecalciferol (vitamin D3) [Vitamin D3] 50 mcg (2,000 unit) capsule 4,000 unit PO DAILY RF: 0
[2021-02-21] MEDS: Lactated Ringers 1,000 ML 100 ML IV ×2 (06:47→09:12)
[2021-02-21] MEDS: Cefazolin 2 GM in 0.9% Normal Saline 100 ML IV (07:29)
--- NOTE | 2021-02-21 07:30 | GALL_PTH ---
PATIENT: SINA PIMENTEL [place] [facility] [place] U[place][id number] AGE/SX: 70/F ROOM: RE02/21/[address]: Dr. Nghia White MD : 1950 BED: DIS: 02/21/2021 SPEC #: [id number] RECD: 02/21/21 10:37 STATUS: JOLANTA RERod #: [id number] YUMIKO: 02/21/21 07:[address]: Nghia White DEPT: SURGICAL PATHOLOGY RECD BY: Eda Garrison ENTERED: 02/21/21 11:28 SP TYPE: TOM LORD DR: Dr. Leonor Da Silva DO Tissues: A - Gallbladder, NOS B - Soft tissues of abdomen Procedures: Surgery Specimen Level III HEADER OPERATION: Laparoscopic cholecystectomy with IOC PRE-OP DIAGNOSIS: Subcutaneous mass of abdominal wall; calculus of gallbladder with chronic cholecystitis TISSUE SUBMITTED: A ? Gallbladder, B - Subcutaneous mass of abdominal wall MICROSCOPIC DIAGNOSIS A. Gallbladder, cholecystectomy: Chronic cholecystitis and cholelithiasis. B. Abdominal subcutaneous mass, excision: Mature adipose tissue, consistent with lipoma. MONTY:anmol 02/22/2021 MICROSCOPIC DESCRIPTION Slides are reviewed. GROSS DESCRIPTION A - Received is one container labeled with the patient's name and designated gallbladder. The specimen consists of a gallbladder measuring 8 cm in length and up to 4 cm in diameter. The external surface is pink-land, smooth and glistening for the most part. Focally it is granular, hemorrhagic and contains cautery artifact. The gallbladder contains green-yellow mucoid bile and one ovoid black stone measuring 1.4 x 1.3 x 0.8 cm. The mucosa is bile-stained and without any mass lesions. The gallbladder wall measures 0.1 cm in thickness. Steel Estimator sections from the gallbladder and the cystic duct are submitted in one cassette. B - Received in fixative is one container labeled with the patient's name and designated abdominal subcutaneous mass. The specimen consists of an irregular piece of adipose tissue measuring 8 x 5 x 3 cm. The external surface is inked. Sections reveal yellow adipose cut surfaces without areas of hemorrhage, necrosis or cystic degeneration. Also present in the container are two small detached pieces of adipose tissue measuring in aggregate 2 x 1 x 0.5 cm. Steel Estimator sections are submitted in four cassettes. / MONTY:anmol 02/21/21 TC:3 CPT: 99306 x2
--- NOTE | 2021-02-21 07:30 | RAD_ITS ---
STUDY: INTRAOPERATIVE CHOLANGIOGRAM. REASON FOR EXAM: Female, 70 years old. Laparoscopic cholecystectomy. FLUOROSCOPY TIME (if supplied): ( 30.1 seconds ) minutes/seconds. Cine loop of 72 images was submitted. TECHNIQUE: An intraoperative cholangiogram was performed by the surgeon. Imaging was submitted. COMPARISON: None. FINDINGS: Minimal dilatation of the common bile duct. Questionable tiny filling defect in the distal common bile duct. Contrast is seen within the duodenum. No contrast is seen within the intrahepatic biliary ducts. RAD/Cholangiogram/ O R,Initial IMPRESSION: Questionable tiny filling defect in the distal portion of the common bile duct with mild dilatation of the common bile duct. No contrast is seen within the intrahepatic biliary ducts. Electronically Signed: Zander Marcelo MD at 8:58 EDT , Service support ,
[2021-02-21] MEDS: Bupivacaine Mpf 0.5% 30 ML VIAL (08:20)
--- NOTE | 2021-02-21 08:35 | PCM.OPRPT ---
Problems Associated Problem List Diagnoses (1) Subcutaneous mass of abdominal wall: (2) Cholelithiasis with chronic cholecystitis: Report of Operation Date of Procedure: 02/21/21 Pre-Operative Diagnosis: Chronic cholecystitis cholelithiasis and right abdominal wall subcutaneous mass Post-Operative Diagnosis: Chronic cholecystitis, cholelithiasis, nonfilling of the proper hepatic duct or hepatic radicles, right abdominal wall subcutaneous 8 x 5.5 cm mass Surgery/Procedure Performed:: Laparoscopic cholecystectomy with cholangiography. Excision right lateral subcostal abdomen subcutaneous mass Description of Surgical Findings:: Timeout and informed consent was obtained. 70-year-old female was taken to the operating placed supine on the table underwent general endotracheal intubation anesthesia. Ancef 2 g were given intravenously. The abdomen was sterilely prepped and draped. I first olaf attention to the right subcostal subcutaneous mass. 1% lidocaine mixed 50-50 with 0.5% Marcaine was instilled as a local anesthetic. A total of 8 cc was used. Throughout the procedure a total of 30 cc was used. A transverse incision was made directly over the mass it was sharply and bluntly completely dissected free and submitted. Clinically this was consistent with a lipoma. As noted it measures 8 x 5.5 cm. Hemostasis was obtained with electrocautery. Subcutaneous tissue was approximated with interrupted 3-0 Vicryl. Skin edges approximated running septic or 4-0 Monocryl. Steri-Strips Telfa OpSite dressing was applied at the completion of the procedure. Attention was now drawn to the cholecystectomy portion of the procedure. Local was instilled at the umbilicus and an infraumbilical midline incision was created. Holding sutures of 0 Vicryl placed. Varies needle inserted. The abdomen was insufflated with CO2 to a pressure of 10 mmHg pressure. 10 mm trocar was inserted. 10 mm laparoscope inserted. No evidence of any trocar injuries. The abdomen was superficially inspected. There was no superficial abnormalities noted. Under direct visualization 5 mm ports were placed in the epigastric midabdomen and right upper quadrant. The gallbladder had multiple adhesions of omentum to the right lateral aspect. These were dissected free with blunt dissection sharp dissection and electrocautery dissection. The gallbladder then could be elevated. Blunt dissection was instituted at the infundibular area until absolutely clearly the cystic duct and cystic artery identified. The critical view was nicely achieved. A hemolock clip was placed on the cystic duct stump and incision made in the cystic duct and a cholangiogram catheter was inserted. Fluoroscopically controlled cholangiograms were obtained. There was good filling of the duct immediately at the level of the cystic duct entering and distally. I could not get the proper hepatic duct of any distance and certainly not the intrahepatic radicles to fill. I then placed the patient in steep Trendelenburg position and reattempted the injection. All of the contrast material flowed distally. I saw no blushing of contrast centrally. At this point I was absolutely assured that I had the catheter in the cystic duct. Only 1 clip had been applied and that was on the cystic duct stump. I elected to proceed with the procedure. The infrahepatic portal area was superficially inspected there was no gross mass of the liver or encumbrance upon the duct at the level of the seemingly nonflow. I removed the cholangiogram catheter placed an additional hemolock clip across the cystic duct transected it. I then secured the cystic artery with 2 hemolock clips proximally transected it to sure backbleeding which I got. Then the gallbladder was dissected free from the liver bed. Hemostasis was achieved where necessary with gentle cautery. A small posterior vessel up on the liver was treated with a hemolock clip. The gallbladder was released and replaced in the retrieval bag but there was absolutely no spillage during the case. A piece of fibrillar was further placed in the liver bed to assure hemostasis. The cystic duct area carefully visualized hemolock clips were in good position. Hemostasis was intact. No mass lesions identified. The right upper quadrant was irrigated and aspirated free of excess fluid. The gallbladder was placed in a retrieval bag and exited at the umbilicus. The abdomen was allowed to deflate through an antiviral valve. Trochars were removed. The fascia at the umbilicus approximated 0 Vicryl [id number] suture. Skin edges approximated interrupted 4-0 Monocryl subdermal stitches. Steri-Strips Telfa OpSite dressings applied. Sponge and instrument and needle counts were reported to the surgeon to be correct. Specimen gallbladder. Drains none. Blood loss minimal. The patient was taken to the recovery area in satisfactory condition without apparent complication Nghia White M.D., F.A.C.S. Type of Anesthesia: General and Local Anesthesiologist: Justin Mclean
--- NOTE | 2021-02-21 10:50 | SUR.PHASEII ---
Per instructions from Rebecca SMART, Dr White's office nurse, pt instructed that she is to return on 02/28/21 at 1320 for MRCP at 1345. Richy info given MRCP. Per radiology, pt instructed to be NPO 4hrs prior to MRCP. Instructions given verbally and in writing.
[2021-02-21] MEDS: HYDROcodone Bitartrate/Apap 5/325 Tablet PO ×2 (12:32→14:57)
== END 2021-02-21 16:22 | disposition home or self-care (01) ==
LOC: SDC 06:03 → AC 06:08
PROVIDERS: Anesthesiology; PCP Internal Medicine; Referring Provider Surgery; Visit Provider Surgery
PROC: (CPT 47610; principal; 2021-02-21 07:10)
PROC: (CPT 22903; 2021-02-21 07:10)
DX: K80.10 Calculus of gallbladder with chronic cholecystitis without obstruction (principal); D17.1 Benign lipomatous neoplasm of skin and subcutaneous tissue of trunk; I10 Essential (primary) hypertension; E78.5 Hyperlipidemia, unspecified; M19.90 Unspecified osteoarthritis, unspecified site; F32.9 Major depressive disorder, single episode, unspecified; F41.9 Anxiety disorder, unspecified; E03.9 Hypothyroidism, unspecified; Z79.899 Other long term (current) drug therapy
CPT/HCPCS: 00790; 22903; 47563; 36415; 74300; 76000; 80048; 84443; 85027; 88304; 88305; 93005; J7120; J2405

== ENCOUNTER → 2021-02-28 13:14 | Outpatient (CLI) | payer MEDICARE, OTHER, SELFPAY ==
[2021-02-21 06:37] VITALS: BMI 23.8
--- NOTE | 2021-02-28 13:17 | MRI_ITS ---
STUDY: MR MRCP WITHOUT CONTRAST REASON FOR EXAM: Female, 70 years old. cholelithiasis TECHNIQUE: Standard MRCP technique was utilized. COMPARISON: None. FINDINGS: Gall Bladder: Patient is status post cholecystectomy on 02/21/2021. There is fluid and debris within the gallbladder fossa. Cystic duct: Normal with no demonstrated fixed filling defect. Intrahepatic ducts: Normal visualized intrahepatic ducts with no demonstrated fixed filling defect, dilation or stricture. Common hepatic duct: Normal with no demonstrated fixed filling defect, dilation or stricture. Common bile duct: Normal with no demonstrated fixed filling defect, dilation or stricture. Pancreatic duct: Normal with no demonstrated fixed filling defect, dilation or stricture. MRI/MRCP Abdomen without Contrast IMPRESSION: Patient is status post cholecystectomy on 02/21/2021. There is fluid and debris within the gallbladder fossa. Cannot rule out that there is a gallbladder remnant present. No extra- or intra-hepatic biliary ductal dilatation. No stricture or intraluminal filling defect seen within the common bile duct. Electronically Signed: Apolinar Segovia MD at 17:05 EDT Tel , Service support ,
== END ==
PROVIDERS: PCP Internal Medicine; Referring Provider Surgery; Visit Provider Surgery
DX: K80.10 Calculus of gallbladder with chronic cholecystitis without obstruction (principal); Z90.49 Acquired absence of other specified parts of digestive tract
CPT/HCPCS: 74181

== ENCOUNTER 2021-09-13 08:30 | Outpatient (RCR) | payer MEDICARE, OTHER, SELFPAY ==
--- NOTE | 2021-08-13 16:14 | HP.PTEVAL ---
Patient's Visit Information SINA STAPLETON is a 70 year old F referred to Physical Therapy by Dr. Loenor Da Silva DO with a diagnosis of LBP with radiculopathy. Date of Evaluation: 08/13/21 Physical Therapist: Harjit Mauricio, PT, ATC - Visit Plan Frequency: 2-3x /Week Duration: 4-6 Weeks Plan: SKTC/DKTC stretching, core stab ex's, LE stretching, bike, and HEP - Subjective Pt reports she has had R thigh pain for approximately 3 1/2 years. Pt notes she had a R ELIZABETH performed at that time. Pt notes she has recently noticed increased sx's in her R hip and thigh, and notes this occurs when she is trying to stand up. Pt notes her R LE radiculopathy has now been gone for approximatley3 weeks, and notes her main concern at this time is with her LBP. Pt notes she has had an xray in the past which revealed degenerative changes in her LB. No LE tingling or numbness in LE's at this time. Pt reports driving for greater than one hour will increase her sx's. Pt also notes occasional pain with prolonged walking. Pt notes lifting her R leg to get it into the car is difficulty. 2/10 pain at rest, 8/10 at worst - Pain LBP Pain Intensity (Out of 10): 2 Pain Intensity Range: 8 - Objective Neuro: B LE sensation is WNL to light touch. B patellar reflex= 2/3. MMT: B LE's are grossly5/5 throghout. ROM: all ranges are WNL at this time. Repeated movements: RFIS 10x3 NE, JESSICA 10x3 increased pain. SKTC/DKTC 15 sec x 3 decreased pain - Balance/Special Test Scores Oswestry Low Back Score: 16 - Goals Goal 1:: Decrease LBP x 50% to aid with sleep Goal Time Frame: 4-6 Weeks Goal 2:: abolish R LE radiculopathy by 100% to aid with tolerance for ambulation Goal Time Frame: 4-6 Weeks Goal 3:: pt I with HEP Goal Time Frame: 4-6 Weeks - Rehabilitation Potential Physical Therapy Diagnosis: Pt has LBP, intermittent radiculopathy, and limited ambulation tolerance secondary to DDD in L/S Rehabilitation Potential: Good - Anticipated Interventions Patient/Client Instruction: Educate patient on: Condition, Plan of Care For the Purpose of:: To improve self management Therapeutic Exercise to Include: Strength training, Endurance training, Body mechanics, Flexibilty training, Dynamic Lumbar Stabilization For the Purpose of:: To decrease pain, To improve muscle performance and motor function Cryotherapy (ice pack, ice massage): Yes For the Purpose of:: To decrease pain Thank you for the opportunity to evaluate your patient. For Medicare and Medicare HMO plans, please review the plan of care and approve it. It will need to be FAXED BACK to us at [phone] for Medicare purposes. For Medicare only, by signing this I certify the plan of care. Please let me know if there are questions or concerns regarding this plan of care. Physician Signature: Date:
--- NOTE | 2021-09-13 09:00 | HP.PTDCSUM ---
It has been my pleasure to treat SINA STAPLETON referred by Dr. Leonor Da Silva DO, with the diagnosis of LBP with radiculopathy for a total of 9 visit(s). Discharge Date: Please see the following information for a summary of their discharge status. Subjective: Pt reports she feels like PT is really not helping much. LBP Pain Intensity (Out of 10): 2 Objective/Function: LBP ranges from 2-7/10, depending on the activity she performs. R LE still occurs at the same intensity, but not as often. Pt is I with HEP Goal 1:: Decrease LBP x 50% to aid with sleep Goal Progress: Goal Met Goal 2:: abolish R LE radiculopathy by 100% to aid with tolerance for ambulation Goal Progress: Progressing Goal 3:: pt I with HEP Goal Progress: Goal Met Plan: Discharge to HEP If there are questions or concerns regarding this patient's physical therapy, please feel free to call me at [phone]. Thank you for the referral of this patient. Sincerely, Harjit Mauricio, PT, ATC Balance/Gait/Functional tests - Balance/Special Test Scores Oswestry Low Back Score: 12
== END 2021-09-13 13:05 | disposition home or self-care (01) ==
LOC: PT 08:30
PROVIDERS: PCP Internal Medicine; Referring Provider Internal Medicine; Visit Provider Internal Medicine
DX: M54.16 Radiculopathy, lumbar region (principal)
CPT/HCPCS: 97110; 97161; 97164

== ENCOUNTER 2022-01-08 14:37 | Outpatient (CLI) | payer MEDICARE, SELFPAY ==
--- NOTE | 2022-01-08 14:41 | RAD_ITS ---
STUDY: X-RAY - RIGHT FOOT CLINICAL: Female, 71 years old. TOE PAIN TECHNIQUE: 3 view(s) of the foot. COMPARISON: None. FINDINGS: There is very mild degenerative narrowing of the first MTP joint. Minimal periarticular soft tissue calcification noted adjacent to this joint, suggesting old trauma. Visualization of the phalanges of the second through fifth toes is limited due to flexion of the toes which causes overlapping of the phalanges. There is a probable subacute/healing nondisplaced fracture of the third toe middle phalangeal shaft. No acute fracture. No dislocation. RAD/Foot min 3 Views IMPRESSION: Probable subacute/healing fracture of the third toe middle phalanx.. No acute fracture or dislocation identified. Electronically Signed: Jt Otero MD at 1:26 EDT ,
--- NOTE | 2022-01-08 14:42 | RAD_ITS ---
STUDY: X-RAY - LEFT WRIST REASON FOR EXAM: Female, 71 years old. WRIST PAIN TECHNIQUE: 3 view(s) of the wrist were obtained. COMPARISON: None. FINDINGS: Normal visualized distal radius and ulna. Normal radiocarpal articulation. Normal distal radioulnar articulation. Normal carpal bones. Normal carpal articulations. Normal carpometacarpal articulation of the thumb. The first MCP joint is partially visualized on one view and demonstrates mild degenerative spurring. Mild soft tissue swelling palmar to the wrist. The pronator fat pad is not displaced RAD/Wrist min 3 Views IMPRESSION: Mild degenerative spurring about the first MCP joint. No acute fracture or dislocation. Electronically Signed: Jt Otero MD at 1:28 EDT ,
== END 2022-01-08 23:59 | disposition home or self-care (01) ==
LOC: MTRAD 14:39
PROVIDERS: PCP Internal Medicine; Referring Provider Internal Medicine; Visit Provider Internal Medicine
DX: M79.674 Pain in right toe(s) (principal); M25.532 Pain in left wrist; G89.29 Other chronic pain
CPT/HCPCS: 73110; 73630

== ENCOUNTER 2022-01-28 08:55 | Outpatient (CLI) | payer MEDICARE, SELFPAY ==
--- NOTE | 2022-01-28 08:58 | US_ITS ---
STUDY: THYROID ULTRASOUND REASON FOR EXAM: Female, 71 years old. NODULE TECHNIQUE: Ultrasound evaluation of the thyroid was performed with real-time and static zuniga-scale imaging. COMPARISON: Thyroid ultrasound January 22, 2021 FINDINGS: RIGHT LOBE: The right lobe of the thyroid gland measures 4.3 x 1.4 x 0.8 cm. There is a homogeneous echotexture. On the right side there is a visualized nodule well-circumscribed borders measuring 0.6 x 1.9 cm with mostly isoechoic features. There is a 2.8 x 1.6 mm mostly low attenuating anechoic nodule. There is a hypoechoic, nodule measuring 2.3 x 2.4 cm. There is minimal vascularity. Compared to prior study these findings are stable. LEFT LOBE: The left lobe of the thyroid gland measures 3.8 x 1.8 x 0.8 cm. There is a homogeneous echotexture. There is a mixed echogenicity nodule measuring 0.7 x 0 point or centimeters with a coarse calcification. There is a hypoechoic nodule measuring 3.7 x 2.8 mm ISTHMUS: The isthmus measures 2.0 . The regional lymph nodes are normal. US/Thyroid IMPRESSION: Within normal limits sized thyroid with several small stable nodules. Recommend continued follow-up in 12 months to ensure stability, or as clinically appropriate. Electronically Signed: Dulce Larson MD at 4:09 EDT ,
--- NOTE | 2022-01-28 08:58 | BI_ITS ---
MAMMOGRAPHY - BILATERAL SCREENING 3-D TOMOSYNTHESIS REASON FOR EXAM: Female, 71 years old. SCREENING PERTINENT HISTORY: No significant family history. TECHNIQUE: 2-D mammograms and 3-D Tomosynthesis of the breast (s) were performed. CAD was performed. COMPARISON: 01/22/2021 FINDINGS: The breast composition is composed of scattered fibroglandular density. Scattered benign calcifications are seen. 1 cm oval obscured equal density mass in the lower outer quadrant of the right breast at mid depth and focal compression views recommended for further evaluation. No dominant mass left breast. No suspicious calcifications.. No architectural distortion is identified. There is no skin thickening or retraction. BI/SCRN MAMM (CAD)W/DENITA BILAT IMPRESSION: 1 cm oval obscured equal density mass in the lower outer quadrant of the right breast at mid depth on focal compression views recommended for further evaluation. ASSESSMENT CATEGORY: BIRADS Category 0: Incomplete. Need additional imaging evaluation as above. A letter regarding these results will be sent to the patient by the facility within 30 days. FOLLOW UP RECOMMENDATION: Additional imaging recommended as above. (E) Approximately 10% of breast cancers are not detected by mammography. A normal mammogram should not delay biopsy of a clinically suspicious abnormality. Electronically Signed: Aleksandr Ricardo MD at 11:17 EDT ,
== END 2022-01-28 23:59 | disposition home or self-care (01) ==
LOC: US 08:55
PROVIDERS: PCP Internal Medicine; Referring Provider Internal Medicine; Visit Provider Internal Medicine
DX: Z12.31 Encounter for screening mammogram for malignant neoplasm of breast (principal); E04.1 Nontoxic single thyroid nodule
CPT/HCPCS: 76536; 77063; 77067

== ENCOUNTER → 2022-02-06 | Outpatient (CLI) | payer MEDICARE, SELFPAY ==
--- NOTE | 2022-02-06 12:21 | US_ITS ---
STUDY: ULTRASOUND BREAST - RIGHT REASON FOR EXAM: Female, 71 years old. Abnormal screening mammogram. TECHNIQUE: Axial and longitudinal images of the RIGHT breast were performed with a high resolution ultrasound transducer. # OF IMAGES: 16 COMPARISON: Comparison is made with prior mammogram dated 01/28/2022 and 02/06/2022. FINDINGS: RIGHT Breast: The mammographic abnormality corresponds to a 5 mm x 7 mm x 3 mm cyst at the 6 o''clock position of the breast at 2 cm from the nipple. US/Breast Limited Unilateral IMPRESSION: 5 mm x 7 mm x 3 mm cyst at the 6 o''clock position of the breast at 2 cm from the nipple. ASSESSMENT CATEGORY: BIRADS Category 2: Benign. A letter regarding these results will be sent to the patient by the facility within 30 days. Electronically Signed: Zander Marcelo MD at 14:05 EDT ,
--- NOTE | 2022-02-06 12:21 | BI_ITS ---
MAMMOGRAPHY - UNILATERAL DIAGNOSTIC: RIGHT BREAST REASON FOR EXAM: Female, 71 years old. Abnormal screening mammogram. PERTINENT HISTORY: Sister with breast cancer. TECHNIQUE: Compression spot views of the right breast in the mediolateral oblique and craniocaudad views were obtained. CAD: Full Field Digital Mammography with Computer Added Detection was performed. COMPARISON: Comparison is made with prior mammogram dated 01/28/2022. FINDINGS: Breast Composition: There are scattered areas of fibroglandular density. Persistent 6 mm oval nodular density is seen in the slightly lower retroareolar region of the right breast. Correlation with ultrasound is recommended. No other significant abnormalities are identified. BI/DIAG MAMM W/CAD, UNILAT IMPRESSION: Persistent 6 mm oval nodular density in the slightly inferior retroareolar region of the right breast. Correlation with ultrasound is recommended. ASSESSMENT CATEGORY: BIRADS Category 0: Incomplete. Need additional imaging evaluation. A letter regarding these results will be sent to the patient by the facility within 30 days. Approximately 10% of breast cancers are not detected by mammography. A normal mammogram should not delay biopsy of a clinically suspicious abnormality. Electronically Signed: Zander Marcelo MD at 13:08 EDT ,
--- NOTE | 2022-02-06 13:39 | RAD_ITS ---
EXAM: XR LEFT ANKLE COMPLETE, 3 OR MORE VIEWS CLINICAL INDICATION: PAIN TECHNIQUE: Frontal, lateral and oblique views of the left ankle. This report was created using [employer] report generation technology. COMPARISON: None. FINDINGS: BONES/JOINTS: Unremarkable. No acute fracture. No subluxation. Normal alignment. Preservation of the joint space. No sclerotic or destructive changes observed. SOFT TISSUES: Unremarkable. No soft tissue swelling or gas. No radiopaque foreign body. RAD/Ankle min 3 Views IMPRESSION: Negative left ankle x-rays. Electronically Signed: Harjit Ulloa MD at 15:55 EDT Reading Location ID and State: [facility] / [place] , Service support ,
--- NOTE | 2022-02-06 13:39 | RAD_ITS ---
EXAM: XR RIGHT CALCANEUS, 2 OR MORE VIEWS CLINICAL INDICATION: PAIN TECHNIQUE: Lateral and plantar views of the right calcaneus. This report was created using [employer] report generation technology. COMPARISON: None. FINDINGS: BONES/JOINTS: Unremarkable. No acute fracture. No subluxation. Normal alignment. Preservation of the joint space. No sclerotic or destructive changes observed. SOFT TISSUES: Unremarkable. No soft tissue swelling or gas. No radiopaque foreign body. RAD/Calcaneus min 2 Views IMPRESSION: Negative right calcaneus x-rays. Electronically Signed: Harjit Ulloa MD at 16:59 EDT ,
--- NOTE | 2022-02-06 13:39 | RAD_ITS ---
STUDY: X-RAY - PELVIS AND LEFT HIP REASON FOR EXAM: Female, 71 years old. PAIN TECHNIQUE: XR Hip Unilateral with Pelvis when performed; 2-3 Views COMPARISON: None. FINDINGS: There is a non-specific bowel gas pattern. Normal visualized soft tissue structures. Normal bilateral iliac wings, sacroiliac joints and visualized sacrum. Normal bilateral superior and inferior pubic rami. Normal pubic symphysis. Normal bilateral ischial tuberosities. Total right hip arthroplasty. Normal left acetabulum. Normal left hip joint. RAD/HIP, UNI W/ Pelvis 2-3 Views IMPRESSION: No acute findings. Electronically Signed: Harjit Ulloa MD at 15:34 EDT ,
== END | disposition home or self-care (01) ==
PROVIDERS: PCP Internal Medicine; Referring Provider Internal Medicine; Visit Provider Internal Medicine
DX: M25.552 Pain in left hip (principal); M25.572 Pain in left ankle and joints of left foot; M79.671 Pain in right foot; R92.2 Inconclusive mammogram
CPT/HCPCS: 73502; 73610; 73650; 76642; 77065

== ENCOUNTER → 2022-04-01 | Outpatient (CLI) | payer MEDICARE, SELFPAY ==
--- NOTE | 2022-04-01 07:31 | CT_ITS ---
EXAM: CT HEAD WITHOUT AND WITH INTRAVENOUS CONTRAST CLINICAL INDICATION: HEADACHE TECHNIQUE: Multiple axial images were obtained of the head without and with intravenous contrast. This CT exam was performed using one or more of the following dose reduction techniques: automated exposure control, adjustment of the mA and/or kV according to patient size, and/or use of iterative reconstruction technique. This report was created using [employer] report generation technology. CONTRAST: IV 50mL [id number] RADIATION DOSE: CTDIvol = 44.99 mGy, DLP = 1479.73 mGy-cm. COMPARISON: MR brain 08/03/2019. FINDINGS: BRAIN AND EXTRA-AXIAL SPACES: Mild generalized atrophy. Mild low density bilaterally in the deep white matter. 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 No intra- or extra-axial hemorrhage. No intracranial mass or mass effect. Posterior fossa structures are unremarkable. No hydrocephalus. Basal cisterns are patent. BONES/JOINTS: Unremarkable. No discrete lytic or blastic abnormalities. SINUSES: Unremarkable as visualized. Clear. MASTOID AIR CELLS: Unremarkable. Clear. ORBITS: Visualized globes, extraocular muscles, optic nerves and retrobulbar fat appear unremarkable. CT/Brain/Head W/WO Contrast IMPRESSION: 1. Mild generalized atrophy. Mild low density bilaterally in the deep white matter. This likely represents small vessel ischemic changes in the deep white matter. 2. 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 Electronically Signed: Cooper Abad MD at 6:38 EDT ,
--- NOTE | 2022-04-01 07:32 | CT_ITS ---
EXAM: CT MAXILLOFACIAL WITHOUT INTRAVENOUS CONTRAST CLINICAL INDICATION: HEADACHES TECHNIQUE: Helically acquired images were obtained of the face without intravenous contrast. This CT exam was performed using one or more of the following dose reduction techniques: automated exposure control, adjustment of the mA and/or kV according to patient size, and/or use of iterative reconstruction technique. This report was created using [employer] report generation technology. RADIATION DOSE: CTDIvol = 33.06 mGy, DLP = 809.06 mGy-cm. COMPARISON: None. FINDINGS: BONES/JOINTS: Unremarkable. No displaced fracture. No discrete lytic or blastic abnormalities. SOFT TISSUES: Unremarkable. No focal subcutaneous swelling. No discrete fluid collections. ORBITS: Unremarkable. Both globes are unremarkable. Extraocular muscles are normal. Retrobulbar fat appears unremarkable. SINUSES: Unremarkable as visualized. Clear. MASTOID AIR CELLS: Unremarkable as visualized. Clear. DENTAL: No acute findings. No periodontal osseous erosion. CT/Sinus/Facial Bone IMPRESSION: Negative CT facial bones without intravenous contrast. Electronically Signed: Cooper Abad MD at 6:39 EDT ,
[2022-04-01 07:45] LABS: CREATININE FINGERSTICK < 0.9 mg/dL (0.55-1.02); EGFR FINGERSTICK > 60.0000 mL/min (>60)
== END | disposition home or self-care (01) ==
LOC: CT 07:29
PROVIDERS: PCP Internal Medicine; Referring Provider Internal Medicine; Visit Provider Internal Medicine
DX: J32.9 Chronic sinusitis, unspecified (principal); R51.9 Headache, unspecified; I10 Essential (primary) hypertension
CPT/HCPCS: 70470; 70486; Q9967

== ENCOUNTER 2022-06-19 10:30 | Outpatient (RCR) | payer MEDICARE, SELFPAY ==
--- NOTE | 2022-05-26 17:28 | HP.PTEVAL ---
Patient's Visit Information SINA STAPLETON is a 71 year old F referred to Physical Therapy by Dr. Eddie Chung MD with a diagnosis of Straight of Right Psoas. Date of Evaluation: 05/26/22 Physical Therapist: Anais Infante DPT - Visit Plan Frequency: 2x /Week Duration: 4 Weeks Plan: Focus on hip and core strength/stabilization. HEP Given IE: TA contraction, bridge, hip adduction, clams - Subjective Patient reports that she had her right hip replaced 4 years ago and its still very weak- she feels the whole leg is week. She went to see podiatry and then sent her to the air quality instrument specialist. She had an MRI which did not show anything that would cause her foot problems- but her psoas muscle has a lot of atrophy. They are unsure how that happens. Her right foot was really sore to the ball of the foot and ankle pain but that has subsided. She tries to walk a couple of times a day- some days she has no problems and other times she has burning pain that radiates down her leg to the knee. If she walks really slow she can walk out of it in a minute or two. She feels that pain is in the hip and down to the knee. She also gets the pain when she turns to quickly- the pain then will stay awhile then it works itself out. That happens a few times a day. She home therapy for her hip then he told her she didn't need any more PT. She has had PT a couple of times for her leg pain and back. The therapy did not help completely. She has not had water therapy. 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 Sleep: disturbed- when she is rolling from one side or the other. She has had x-rays on her hip and MRI on her spine. Saw Dr. Rice for her spine. She feels that its not any worse just not any better. She is normally pretty active- walking and yoga (3x a week-home). PMHx: right THR, TBI (Jul 2006), broken wrist, fractured cervical and thoracic spine (Jul 2006), HTN, thyroid Meds: Synthroid, Effexor, Lyrica, Losartin, Valacyclovir, Trazadone, Rosuvastatin, Prolia - Objective Posture: FH, RS- can correct with verbal cues but does not maintain. Gait: slight translation at the pelvis. HR/TR: able without incidence. SLS: moderate hip drop with increased muscle activation and sway. ROM: WNL in all planes of the LE and lumbar spine. Strength: Core: fair minus, Hip: 4-/5 IR/ER, Abd, glut med (clams), flexion, 4+/5 extension and adduction, Knee: 5/5, Ankle: 5/5. Flex: HS: mild, Gastroc: moderate. Palpation: not tender to touch - Special Tests L/S Slump test left side: Negative L/S Slump test right side: Negative L/S Left Straight Leg Raise: Negative L/S Right Straight Leg Raise: Negative R Hip Quadrant - Intraarticular Pathology: Negative R Hip TONI - Intraarticular Pathology: Negative R Hip FADDIR - Labrum: Negative R Hip Impingement Provocation - Labrum: Negative R Hip Trendelenberg - Glut Medius: Positive R Hip Sandra - IT Band: Negative - Balance/Special Test Scores Lower Extremity Functional Score: 49 - Goals Goal 1:: Patient will be I with HEP and progression Goal Time Frame: 4-6 Weeks Goal 2:: Patient will SLS without hip drop for 30 sec Goal Time Frame: 4-6 Weeks Goal 3:: Patient will report 80% improvement Goal Time Frame: 4-6 Weeks Goal 4:: Patient will maintain proper posture t/o tx session to demo increased core s/s Goal Time Frame: 4-6 Weeks - Rehabilitation Potential Physical Therapy Diagnosis: Patient presents with hypomobility- she has decrease LE and core strength/stabilization, proprioception and muscular endurance leading to abnormal gait and increased pain with ADL's/recreational activities. Rehabilitation Potential: Good - Anticipated Interventions Patient/Client Instruction: Educate patient on: Benefits of Fitness Program Therapeutic Exercise to Include: Strength training, Endurance training, Balance training, Coordination, Agility training, Body mechanics, Postural training, Flexibilty training, Gait and locomotor training, Neuromotor development, Dynamic Lumbar Stabilization, Scapular Strength/Stabilization For the Purpose of:: To improve muscle performance and motor function TENS: Yes Cryotherapy (ice pack, ice massage): Yes Thermo therapy (hot pack): Yes Ultrasound (thermal/non thermal): Yes Thank you for the opportunity to evaluate your patient. For Medicare and Medicare HMO plans, please review the plan of care and approve it. It will need to be FAXED BACK to us at [phone] for Medicare purposes. For Medicare only, by signing this I certify the plan of care. Please let me know if there are questions or concerns regarding this plan of care. Physician Signature: Date:
--- NOTE | 2022-06-19 11:16 | HP.PTDCSUM ---
It has been my pleasure to treat SINA STAPLETON referred by Dr. Eddie Chung MD, with the diagnosis of Straight of Right Psoas for a total of 8 visit(s). Discharge Date: Please see the following information for a summary of their discharge status. Subjective: Patient reports that she has no pain with the hip. She has a full HEP and has no questions. She has no pain in the hip and feels 100% better. R psoas Pain Intensity (Out of 10): 0 % Improvement: 100 Objective/Function: Posture: fair throughout. Gait: no deviation noted. HR/TR: able without incidence. SLS: 15 sec without hip drop ROM: WNL in all planes of the LE and lumbar spine. Strength: Core: fair, Hip: 4+/5 IR/ER, Abd, glut med (clams), flexion, 4+/5 extension and adduction, Knee: 5/5, Ankle: 5/5. Flex: HS: mild, Gastroc: moderate. Palpation: not tender to touch Goal 1:: Patient will be I with HEP and progression Goal Progress: Goal Met Goal 2:: Patient will SLS without hip drop for 30 sec Goal Progress: Goal Met Goal 3:: Patient will report 80% improvement Goal Progress: Goal Met Goal 4:: Patient will maintain proper posture t/o tx session to demo increased core s/s Goal Progress: Goal Met Plan: 06/19/22: Discharge to [facility] If there are questions or concerns regarding this patient's physical therapy, please feel free to call me at [phone]. Thank you for the referral of this patient. Sincerely, Anais Infante, WILLIAMT Balance/Gait/Functional tests - Balance/Special Test Scores Lower Extremity Functional Score: 72
== END 2022-06-19 12:30 | disposition home or self-care (01) ==
LOC: PT 10:30
PROVIDERS: PCP Internal Medicine; Referring Provider Orthopaedic Surgery Orthopaedic Surgery of the Spine; Visit Provider Orthopaedic Surgery Orthopaedic Surgery of the Spine
DX: S76.011D Strain of muscle, fascia and tendon of right hip, subsequent encounter (principal); X58.XXXD Exposure to other specified factors, subsequent encounter
CPT/HCPCS: 97110; 97162; 97164